=== PATIENT | female | born 1965 | race Caucasian/White ===

== ENCOUNTER 2021-05-08 14:28 | Outpatient (CLI) | payer MEDICAID, SELFPAY ==
--- NOTE | 2021-05-08 14:44 | XR_ITS ---
WS: [id number] Exam: XR KUB [id number] Date/Time of Exam: 05/08/2021 2:46 PM Reason For Exam: stomach pain No bowel obstruction or free air. No calcifications seen in the region of the kidneys. No sign of org an enlargement. Nonspecific pelvic calcifications noted bilaterally. Signs of prior cholecystectomy. Regional bony structures are intact. XR/XR KUB [id number] IMPRESSION: 1. No calcifications noted in the region of the kidneys. 2. No acute abdominal process.
== END 2021-05-08 14:29 | disposition home or self-care (01) ==
LOC: RAD 14:38
PROVIDERS: Visit Provider Nurse Practitioner
DX: R10.9 Unspecified abdominal pain (principal)
CPT/HCPCS: 74018; 81000

== ENCOUNTER → 2021-05-17 14:33 | Outpatient (BNVA) | payer MEDICAID, SELFPAY | PROVIDERS: Visit Provider Nurse Practitioner | DX: R19.7 Diarrhea, unspecified (principal) | CPT/HCPCS: 87177; 87209; 87493; 87506 ==

== ENCOUNTER 2021-06-04 16:34 | Emergency (ER) | payer MEDICAID, SELFPAY ==
--- NOTE | 2021-06-04 16:38 | XRR_ITS ---
PROCEDURE INFORMATION: Exam: XR Right Ribs with PA Chest Exam date and time: 06/04/2021 4:38 PM Age: 55 years old Clinical indication: Injury or trauma; Rib area; Blunt trauma (contusions or hematomas); Injury date: 06/04/21; Injury details: Fall, loc approx 1 hr; Patient HX: Right sided rib pain, sharp pain w/ breathing and coughing; Additional info: Fall with right rib pain TECHNIQUE: Imaging protocol: XR Right ribs with PA chest. Views: 3 views COMPARISON: CT cervical spin wo con* [id number] 06/04/2021 6:12 PM FINDINGS: Lungs: Unremarkable. No consolidation. Pleural spaces: Unremarkable. No pleural effusion. No pneumothorax. Heart/Mediastinum: Unremarkable. No cardiomegaly. Bones/joints: Unremarkable. XR/XR ribs RT mn 3V w CXR1V [id number] IMPRESSION: No acute findings. Radiation Dose CTDIVOL = (mGy): DLP = (mGy-cm)
[2021-06-04 17:00] VITALS: BP 126/76; PULSE 82; RESP 15; TEMP 37.2; O2SAT 99; BMI 21.7
--- NOTE | 2021-06-04 17:26 | XRR_ITS ---
PROCEDURE INFORMATION: Exam: XR Right Elbow Exam date and time: 06/04/2021 5:26 PM Age: 55 years old Clinical indication: Injury or trauma; Blunt trauma (contusions or hematomas); Injury date: 05/25/2021; Injury details: Fall, loc approx 1 hr; Prior surgery; Surgery type: Thyroid nodules; Patient HX: Right elbow pain; Additional info: Fall pain TECHNIQUE: Imaging protocol: XR Right elbow. Views: 3 or more views. COMPARISON: CR (CHEST, ) 06/04/2021 6:25 PM FINDINGS: Bones/joints: Intact. No evidence of fracture or dislocation. Soft tissues: Normal. XR/XR elbow RT min 3V* [id number] IMPRESSION: No acute findings. Radiation Dose CTDIVOL = (mGy): DLP = (mGy-cm)
--- NOTE | 2021-06-04 17:26 | XRR_ITS ---
PROCEDURE INFORMATION: Exam: XR Right Shoulder Exam date and time: 06/04/2021 5:26 PM Age: 55 years old Clinical indication: Injury or trauma; Blunt trauma (contusions or hematomas); Injury date: 06/04/21; Injury details: Fall, loc approx 1 hr; Patient HX: Right shoulder pain; Additional info: Fall pain TECHNIQUE: Imaging protocol: XR Right shoulder. Views: 2 or more views. COMPARISON: 1. CR XR ribs RT mn 3V w CXR1V [id number] 06/04/2021 6:22 PM 2. CR (CHEST, ) 06/04/2021 6:25:46 PM FINDINGS: Bones/joints: Intact. No fracture or dislocation. Soft tissues: Normal. XR/XR shoulder RT min 2V* [id number] IMPRESSION: No acute findings. Radiation Dose CTDIVOL = (mGy): DLP = (mGy-cm)
--- NOTE | 2021-06-04 17:28 | W.ED.FALL ---
Documented by User: Russ Cooper 06/08/21 09:54 HPI - Fall General: Chief Complaint: Fall Stated Complaint: Pain on Right side/Ribs from fall Time Seen by Provider: 06/04/21 17:20 History of Present Illness: HPI Narrative: 55-year-old female presents emergency room complaining of right shoulder and right rib pain. She got up this morning from bed doing to make coffee get dizzy and fell on the floor. She states she woke up an hour later she was not sure what happened. Stated her right ribs hurt she initially denied any loss conscious to me but when I read the nurses note she told him she been down for an hour and could not really account for it. She is not on any anticoagulants. She has had problems labyrinthitis in the past she is not having any dizziness or vertiginous symptoms now. MD complaint: fall Onset (ago): hour(s) Fall from: standing Fall witnessed: no Place fall occurred: home Loss of consciousness: Yes Prolonged down time: yes and hour(s) (1) Symptoms prior to fall: dizziness Associated symptoms-after fall: Denies abdominal pain or chest pain Review of Systems Const: Denies: fever(s), chills, body aches, change in appetite, fatigue or malaise ENMT: Denies: throat pain, ear or mastoid pain, nasal discharge or nasal congestion Card: Denies: chest pain, edema, dyspnea on exertion or orthopnea Resp: Denies: dyspnea, productive cough or non-productive cough GI: Denies: abdominal pain, nausea, vomiting, hematemesis, coffee ground emesis, diarrhea, constipation, bloating, hematochezia or melena : Denies: flank pain, difficulty voiding, dysuria, urinary frequency or urinary urgency Skin/Breast: Denies: rash or pruritus Physical Exam Const: COMMON NORMALS: no acute distress GENERAL APPEARANCE: cooperative and comfortable ORIENTATION/CONSCIOUSNESS: Yes awake, Yes oriented to person, Yes oriented to place and Yes oriented to time HENMT: COMMON NORMALS: normocephalic, atraumatic and hearing grossly normal bilaterally HEAD & SCALP: normocephalic and atraumatic Resp: COMMON NORMALS: normal respiratory effort, No retractions, No use of accessory muscles and clear to auscultation bilaterally AUSCULTATION: clear to auscultation bilaterally Cardio: COMMON NORMALS: regular rate, regular rhythm and No murmurs present (Cardio) RATE: regular rate RHYTHM: regular rhythm GI: COMMON NORMALS: Soft to palpation and No hepatosplenomegaly present AUSCULTATION: Yes normoactive bowel sounds PALPATION: Yes Soft to palpation, No Tenderness to palpation present (GI), No Guarding due to palpation present (GI) and Yes No hepatosplenomegaly present Extremity: COMMON NORMALS: normal to inspection, capillary refill normal, no clubbing, cyanosis or edema, no calf tenderness and no pedal edema NARRATIVE EXTREMITY EXAM: Pain clavicle and right shoulder Neuro: SENSORIUM/ORIENTATION: Yes oriented to person, Yes oriented to place and Yes oriented to time Skin: COMMON NORMALS: no rashes or lesions noted GENERAL SKIN EXAM: no rashes or lesions noted Course Vital Signs: Vital signs: Vital Signs Temperature 99.0 F 06/04/21 17:00 Pulse Rate 93 06/04/21 19:21 Respiratory Rate 18 06/04/21 19:21 Blood Pressure 119/74 06/04/21 19:21 Pulse Oximetry 90 06/04/21 19:21 MDM - Fall MDM Narrative: Medical decision making narrative: Care turned over to Dr. Dela Cruz at change of shift. See his notes for final diagnosis disposition Discharge Plan Discharge Patient Disposition: Home Clinical Impression: Contusion of right shoulder, Vertigo, Sinusitis Condition: Stable Prescriptions: New methocarbamol 750 mg tablet 750 mg PO Q6H PRN (Reason: spasms) Qty: 20 RF: 0 cephalexin 500 mg capsule 500 mg PO TID 7 Days Qty: 21 RF: 0 Naprosyn 500 mg tablet 500 mg PO BID PRN (Reason: pain) Qty: 20 RF: 0 No Action meloxicam [Mobic] 15 mg tablet 15 mg PO DAILY RF: 0 atorvastatin [Lipitor] 80 mg tablet 80 mg PO DAILY RF: 0 oxybutynin chloride 5 mg tablet 5 mg PO TID RF: 0 lisinopril 40 mg tablet 40 mg PO DAILY RF: 0 loperamide 2 mg capsule 2 mg PO QID PRN (Reason: loose stool) Qty: 20 RF: 0 Discharge Orders: Discharge ED (Routine); Ordered 06/04/21 Ordered By: Shane Dela Cruz Discharge Diet: Advance as tolerated Discharge Activity: Resume usual activity Patient Instructions: Sinusitis (ED), Vertigo (ED) Coding Level of Care Code ED Commercial Credit Portfolio Manager for Chg Fwd Exam Detailed Documented by User: Shane Dela Cruz MD 06/04/21 19:49 HPI - Fall General: Chief Complaint: Fall Stated Complaint: Pain on Right side/Ribs from fall Time Seen by Provider: 06/04/21 17:20 Course Vital Signs: Vital signs: Vital Signs Temperature 99.0 F 06/04/21 17:00 Pulse Rate 93 06/04/21 19:21 Respiratory Rate 18 06/04/21 19:21 Blood Pressure 119/74 06/04/21 19:21 Pulse Oximetry 90 06/04/21 19:21 MDM - Fall MDM Narrative: Medical decision making narrative: Patient presents with vertigo because of fall and has a shoulder contusion from her fall. She has no other signs of any other injuries. CT showed a chronic C7 finding with and examined her she has no acute pain to her neck with no signs of acute fracture. She does have sinus pain sinus congestion states she gets vertigo with sinusitis we'll treat with Keflex for sinusitis she has meclizine at home we'll place her on Naprosyn Robaxin and she is to ice her shoulder patient is able ambulate here she has no signs of stroke she is stable for discharge is to follow-up PCP and return if worsening. EKG Data^: EKG 1: Attestation: I personally reviewed and interpreted this EKG as follows: EKG interpretation date: 06/04/21 EKG interpretation time: 19:40 Interpretation: nsr hr 70 with no t or twave abnormalities qrs 84 qtc 400 Discharge Plan Discharge Patient Disposition: Home Clinical Impression: Contusion of right shoulder, Vertigo, Sinusitis Condition: Stable Prescriptions: New methocarbamol 750 mg tablet 750 mg PO Q6H PRN (Reason: spasms) Qty: 20 RF: 0 cephalexin 500 mg capsule 500 mg PO TID 7 Days Qty: 21 RF: 0 Naprosyn 500 mg tablet 500 mg PO BID PRN (Reason: pain) Qty: 20 RF: 0 No Action meloxicam [Mobic] 15 mg tablet 15 mg PO DAILY RF: 0 atorvastatin [Lipitor] 80 mg tablet 80 mg PO DAILY RF: 0 oxybutynin chloride 5 mg tablet 5 mg PO TID RF: 0 lisinopril 40 mg tablet 40 mg PO DAILY RF: 0 loperamide 2 mg capsule 2 mg PO QID PRN (Reason: loose stool) Qty: 20 RF: 0 Discharge Orders: Discharge ED (Routine); Ordered 06/04/21 Ordered By: Shane Dela Cruz Discharge Diet: Advance as tolerated Discharge Activity: Resume usual activity Patient Instructions: Sinusitis (ED), Vertigo (ED) Coding Level of Care Code ED Commercial Credit Portfolio Manager for [place] Fwd Exam Detailed
--- NOTE | 2021-06-04 17:29 | CTR_ITS ---
PROCEDURE INFORMATION: Exam: CT Head Without Contrast Exam date and time: 06/04/2021 5:29 PM Age: 55 years old Clinical indication: Injury or trauma; Fall; Blunt trauma (contusions or hematomas); With loss of consciousness; Additional info: Fall w loc TECHNIQUE: Imaging protocol: Computed tomography of the head without contrast. Radiation optimization: All CT scans at this facility use at least one of these dose optimization techniques: automated exposure control; mA and/or kV adjustment per patient size (includes targeted exams where dose is matched to clinical indication); or iterative reconstruction. COMPARISON: No relevant prior studies available. RADIATION DOSE METRICS: Total DLP (mGy-cm): 736.21 FINDINGS: Brain: There is chronic infarct in the medial aspect of the left cerebellar hemisphere. There is no intracranial mass, hemorrhage or edema. Cerebral ventricles: No ventriculomegaly. Paranasal sinuses: Visualized sinuses are unremarkable. No fluid levels. Mastoid air cells: Visualized mastoid air cells are well aerated. Bones/joints: Unremarkable. No acute fracture. Soft tissues: Unremarkable. CT/CT head wo con* [id number] IMPRESSION: 1. Old left cerebellar infarct. 2. No acute intracranial finding. Radiation Dose CTDIVOL = (mGy): DLP = 736.21 (mGy-cm)
--- NOTE | 2021-06-04 17:29 | CTR_ITS ---
PROCEDURE INFORMATION: Exam: CT Cervical Spine Without Contrast Exam date and time: 06/04/2021 5:29 PM Age: 55 years old Clinical indication: Injury or trauma; Fall; Blunt trauma; Additional info: Fall/trauma TECHNIQUE: Imaging protocol: Computed tomography images of the cervical spine without contrast. Radiation optimization: All CT scans at this facility use at least one of these dose optimization techniques: automated exposure control; mA and/or kV adjustment per patient size (includes targeted exams where dose is matched to clinical indication); or iterative reconstruction. COMPARISON: CT head wo con* [id number] 06/04/2021 6:10 PM RADIATION DOSE METRICS: Total DLP (mGy-cm): 498.28 FINDINGS: Bones/joints: There is mild anterior wedging of the superior endplate of C7 with sclerosis of the anterior aspect of the upper vertebral body and endplate. This appears to be chronic and could be related to remote injury. Correlation with the clinical findings is suggested. No acute appearing fracture is identified. Discs/Spinal canal/Neural foramina: No significant disc protrusion. No severe spinal canal stenosis. No significant neural foraminal narrowing. Thyroid: Thyroid is enlarged and appears to contain multiple slightly hypodense nodules. Further evaluation with non urgent thyroid ultrasound suggested if not already done. Lungs: Lung apices are normal. Soft tissues: Prevertebral soft tissues are unremarkable question of chronic injury involving the superior endplate of C7. CT/CT cervical spin wo con* [id number] IMPRESSION: 1. Chronic appearing deformity of the superior endplate of C7. Please correlate with clinical findings. 2. No definite acute fracture is identified. 3. Enlarged thyroid with nodules, further evaluation with ultrasound suggested. COMMENTS: Consistent with the [place] [employer]'s Incidental Findings Committee white paper (J Am Berta Radiol 2015): In patients aged 35 years and older with an incidental thyroid nodule equal to or greater than 1.[address], MRI or extrathyroidal US, further evaluation with dedicated thyroid US is recommended for patients with normal life expectancy and without comorbidities. For smaller nodules without suspicious features, no further evaluation or follow up is recommended. Radiation Dose CTDIVOL = (mGy): DLP = 498.28 (mGy-cm)
[2021-06-04] MEDS: HYDROcodone-acetaminophen 5-325 mg Tablet 1 TAB PO (17:50)
--- NOTE | 2021-06-04 18:00 | XRR_ITS ---
PROCEDURE INFORMATION: Exam: XR Right Clavicle, Complete Exam date and time: 06/04/2021 6:00 PM Age: 55 years old Clinical indication: Injury or trauma; Blunt trauma (contusions or hematomas); Injury date: 06/04/21; Injury details: Fall, loc approx 1 hr; Patient HX: Right clavicle/shoulder pain TECHNIQUE: Imaging protocol: XR Right clavicle complete. Views: Any number of views. COMPARISON: CR XR ribs RT mn 3V w CXR1V [id number] 06/04/2021 6:22 PM FINDINGS: Bones/joints: Intact. No fracture or dislocation. Soft tissues: Normal. XR/[place] [id number] IMPRESSION: No acute findings. Radiation Dose CTDIVOL = (mGy): DLP = (mGy-cm)
--- NOTE | 2021-06-04 18:00 | ECG_ITS ---
[facility] Test Date: 2021-06-04 Pat Name: Leatha Flores Department: Room: Gender: Female Director Call Center Sales: : 1965 Requested By: Russ Coburn Order Number: [id number] Vicki MD: Vikram Landis M.D. Measurements Intervals [place] Rate: 70 P: 72 DE: 181 QRS: 83 QRSD: 84 T: 79 QT: 379 QTc: 410 Interpretive Statements SINUS RHYTHM No previous ECG available for comparison Electronically Signed On 06-06-2021 17:42:05 GRAIN MIXER by Vikram Landis M.D. [email or web address]
[2021-06-04 19:21] VITALS: BP 119/74; PULSE 93; RESP 18; O2SAT 90
== END 2021-06-04 20:06 | disposition home or self-care (01) ==
PROVIDERS: Emergency Provider Emergency Medicine
DX: S40.011A Contusion of right shoulder, initial encounter (principal); R42 Dizziness and giddiness; J32.9 Chronic sinusitis, unspecified; W19.XXXA Unspecified fall, initial encounter
CPT/HCPCS: 70450; 71101; 72125; 73000; 73030; 73080; 93005; 99283

== ENCOUNTER → 2021-09-25 10:35 | Outpatient (BNVA) | payer MEDICAID, SELFPAY | PROVIDERS: Visit Provider Family Medicine | DX: Z76.89 Persons encountering health services in other specified circumstances (principal); E11.65 Type 2 diabetes mellitus with hyperglycemia; E05.00 Thyrotoxicosis with diffuse goiter without thyrotoxic crisis or storm; E11.42 Type 2 diabetes mellitus with diabetic polyneuropathy; I10 Essential (primary) hypertension; E78.01 Familial hypercholesterolemia | CPT/HCPCS: 80053; 80061; 82043; 83036; 83721; 84439; 84443; 84481; 85025; 86803; 87806 ==

== ENCOUNTER 2022-01-17 01:14 | Emergency (ER) | payer MEDICAID, SELFPAY ==
[2022-01-17 01:20] VITALS: BP 125/70; PULSE 75; RESP 14; O2SAT 100; BMI 25.0
--- NOTE | 2022-01-17 01:25 | W.ED.DIZZY ---
HPI - Dizziness General: Chief Complaint: Dizziness Stated Complaint: dizzy Time Seen by Provider: 01/17/22 01:25 History of Present Illness: HPI Narrative: 56-year-old female comes in tonight with complaints of dizziness. Patient reports that she started feeling dizzy about 2-1/2 hours prior to arrival to the ER. Patient also states that she has had previous episodes similar illness. Patient reports a frontal sinus headache, and some difficulty hearing out of the right ear. Patient appears nontoxic. Patient responds appropriate to questions. Daughter reports that she seemed either hard to hear or slightly confused. Patient has a history of diabetes, degenerative disc disease, and high cholesterol. Patient reports that she will take any medication for her diabetes at this time. Associated symptoms: Reports nausea and nasal congestion; Denies chest pain Review of Systems General: Reports: 10 or more systems reviewed and unremarkable except in HPI and below Const: Denies: fever(s) ENMT: Reports: nasal congestion Card: Denies: chest pain Resp: Denies: dyspnea GI: Reports: nausea : Denies: difficulty voiding Musc: Denies: neck pain or back pain Skin/Breast: Denies: rash Neuro: Reports: dizziness Endo: Denies: polyuria or polydipsia PFSH ED PFSH: Social History (Updated 10/23/21 @ 09:14 by Oswald Baldwin LPN) Smoking and tobacco status: never smoked Alcohol intake: never Physical Exam Const: COMMON NORMALS: alert HENMT: COMMON NORMALS: normocephalic and Normal external nose present HEAD & SCALP: normocephalic NOSE: Normal external nose present MOUTH: Normal oral and palatal mucosa present THROAT: posterior oropharynx normal Neck/C-Spine: COMMON NORMALS: full ROM and no meningeal signs Resp: COMMON NORMALS: normal respiratory effort and clear to auscultation bilaterally AUSCULTATION: clear to auscultation bilaterally Cardio: COMMON NORMALS: regular rate and regular rhythm RATE: regular rate RHYTHM: regular rhythm Extremity: COMMON NORMALS: normal to inspection and full ROM Neuro: TASHIA COMA SCALE: document GCS findings [place] coma scale eye opening: Spontaneous Tashia coma scale verbal response: Orientated [place] coma scale motor response: Obey commands Tashia coma scale total score: 15 SENSORIUM/ORIENTATION: Yes alert MENINGEAL SIGNS: Yes no meningeal signs SPEECH: speech normal GAIT: Yes Normal gait present PUPIL EXAM: Normal pupillary reactivity/response: bilateral Course Vital Signs: Vital signs: Vital Signs Temperature 98.2 F 01/17/22 01:26 Pulse Rate 72 01/17/22 01:50 Respiratory Rate 14 01/17/22 01:20 Blood Pressure 128/69 01/17/22 01:50 Pulse Oximetry 100 01/17/22 01:20 MDM - Dizziness Medical Decision Making 56-year-old female comes in today for complaints of dizziness. Daughter brought her in for concerns of some mild confusion. Patient states that she has episodes like this at least once a year where she will have significant dizzy spells with occasional nausea and vomiting. Last episode was about 1 year ago. On exam patient is alert and oriented to place. Patient moves all extremities well. No focal neurodeficits were noted. Abdomen was soft and nontender. Orthostatic blood pressures were normal. Differential diagnosis includes CVA, vestibular neuritis, M?ni?re's, sinusitis. Laboratory values were unremarkable except for some elevation of blood glucose at 235, and alk phos at 107. CT of the head did note an old area of infarct but no acute abnormalities. Patient was given a dose of Reglan which improved her nausea and dizziness symptoms. We will go ahead and treat patient for her sinus complaints with cephalexin 500 mg 3 times a day for 7 days. With the abnormality noted on the patient's brain CT and there is recurrent episodes of dizziness along with her episodes of confusion I feel the patient needs further evaluation with neurology outpatient. Patient was agreeable to this along with her daughter. Patient was able to ambulate without any difficulty in the emergency department and felt safe to go home. Lab Data : 01/17/22 01:30 01/17/22 01:[address] 01/17/22 01:55 IMPRESSION: No acute infarct or hemorrhage. ASSESSMENT: ASPECTS ([place] Stroke Program Early CT Score) is 10. Laboratory Results WBC 14.4 10^3/uL (4.0-10.0) H 01/17/22 01:30 RBC 4.17 10^6/uL (4.1-5.3) 01/17/22 01:30 Hgb 13.8 g/dL (11.5-15.3) 01/17/22 01:30 Hct 40.1 % (37.0-47.0) 01/17/22 01:30 MCV 96.2 fl (81-99) 01/17/22 01:30 MCH 33.1 pg (28.0-34.0) 01/17/22 01:30 MCHC 34.4 g/dL (30.0-36.0) 01/17/22 01:30 RDW 12.5 % (12.1-15.1) 01/17/22 01:30 Plt Count 161 10^3/cmm (130-400) 01/17/22 01:30 MPV 9.9 fL (7.4-10.4) 01/17/22 01:30 Neut % (Auto) 74.8 % 01/17/22 01:30 Lymph % (Auto) 18.9 % 01/17/22 01:30 [place] % (Auto) 4.4 % 01/17/22 01:30 Eos % (Auto) 0.9 % 01/17/22 01:30 Baso % (Auto) 0.6 % 01/17/22 01:30 Neut # (Auto) 10.79 10^3/uL (1.8-7.7) H 01/17/22 01:30 Lymph # (Auto) 2.7 10^3/uL (0.8-4.8) 01/17/22 01:30 [place] # (Auto) 0.6 10^3/uL (0.2-0.9) 01/17/22 01:30 Eos # (Auto) 0.1 10^3/uL (0.0-0.8) 01/17/22 01:30 Baso # (Auto) 0.1 10^3/uL (0.0-0.1) 01/17/22 01:30 Nucleated RBC % (auto) 0 % 01/17/22 01:30 Nucleated RBCs # 0.0 /100WBC 01/17/22 01:30 Sodium 137 mmol/L (136-145) 01/17/22 01:30 Potassium 4.2 mmol/L (3.5-5.1) 01/17/22 01:30 Chloride 102 mmol/L (98-107) 01/17/22 01:30 Carbon Dioxide 24 mmol/L (22-29) 01/17/22 01:30 Anion Gap 15.2 (5-19) 01/17/22 01:30 BUN 31 mg/dL (6-20) H 01/17/22 01:30 Creatinine 0.8 mg/dL (0.5-0.9) 01/17/22 01:30 GFR Calculation 74.5 mL/min (90-130) L 01/17/22 01:30 Glucose 235 mg/dL (65-115) H 01/17/22 01:30 POC Glucose 248 mg/dL (70-110) H 01/17/22 01:27 Calculated Osmolality 298 mOsm/kg (285-295) H 01/17/22 01:30 Calcium 9.1 mg/dL (8.5-10.5) 01/17/22 01:30 Total Bilirubin 0.3 mg/dL (0.15-1.2) 01/17/22 01:30 AST 11 U/L (0-32) 01/17/22 01:30 ALT 10 U/L (0-33) 01/17/22 01:30 Alkaline Phosphatase 107 IU/L (35-105) H 01/17/22 01:30 C-Reactive Protein < 3.0 mg/L (0.0-4.9) 01/17/22 01:30 Total Protein 7.0 g/dL (6.6-8.7) 01/17/22 01:30 Albumin 4.3 g/dL (3.5-5.2) 01/17/22 01:30 Globulin 2.7 g/dL (1.3-4.6) 01/17/22 01:30 TSH 0.06 uIU/mL (0.27-4.20) L 01/17/22 01:30 Urine Color Yellow (Yellow) 01/17/22 01:50 Urine Appearance Clear (CLEAR) 01/17/22 01:50 Urine pH 5 (5-7) 01/17/22 01:50 Ur Specific [place] 1.025 (1.005-1.030) 01/17/22 01:50 Urine Protein Neg (Negative) 01/17/22 01:50 Urine Glucose (UA) 4+ (Normal) H 01/17/22 01:50 Urine Ketones Negative (Negative) 01/17/22 01:50 Urine Blood Neg (Negative) 01/17/22 01:50 Urine Nitrate Negative (Negative) 01/17/22 01:50 Urine Bilirubin Neg (Negative) 01/17/22 01:50 Urine Urobilinogen Norm mg/dL (Negative) 01/17/22 01:50 Ur Leukocyte Esterase Negative (Negative) 01/17/22 01:50 Discharge Plan Discharge Patient Disposition: Home Clinical Impression: Recurrent vestibular neuritis, Hx of cerebral infarction, Frontal sinus pain Condition: Stable Prescriptions: Changed cephalexin 500 mg capsule 500 mg PO TID 7 Days Qty: 21 0RF No Action pregabalin 150 mg capsule 150 mg PO BID Qty: 60 2RF atorvastatin 80 mg tablet 80 mg PO DAILY Qty: 30 2RF famotidine 40 mg tablet 40 mg PO DAILY Qty: 90 1RF Novolin R Flexpen 100 unit/mL (3 mL) insulin pen 1 unit SUBCUT TID Qty: 15 2RF Rx Instructions: INJECT PER SLIDING SCALE, MAX 36 UNITS PER DAY meloxicam [Mobic] 15 mg tablet 15 mg PO DAILY Qty: 90 1RF methimazole 5 mg tablet 5 mg PO DAILY Qty: 90 1RF metoprolol tartrate 50 mg tablet 50 mg PO BID Qty: 180 1RF montelukast 10 mg tablet 10 mg PO DAILY Qty: 90 1RF omeprazole 40 mg capsule,delayed release(DR/EC) 40 mg PO DAILY Qty: 90 1RF oxybutynin chloride 5 mg tablet 5 mg PO TID 90 Days Qty: 270 1RF lisinopril 40 mg tablet 40 mg PO DAILY Qty: 90 1RF pregabalin 150 mg capsule 150 mg PO DAILY Qty: 30 2RF Trulicity 0.75 mg/0.5 mL pen injector 0.75 mg SUBCUT .ONCE WEEKLY Qty: 2 5RF methocarbamol 750 mg tablet 750 mg PO Q6H PRN (Reason: spasms) Qty: 20 0RF Discharge Orders: Discharge ED (Routine); Ordered 01/17/22 Ordered By: Nicolas Johnson Referrals: Von Wu DO [Primary Care Provider] - Discharge Diet: Usual diet Discharge Activity: Increase activity as tolerated Patient Instructions: Dizziness (ED) Activity Restrictions/Additional Instructions: Change positions slowly. Drink plenty of water with medications. Follow-up with primary care for further instructions. Take antibiotics as directed. Case management will contact you regarding follow-up appointment with neurologist. Return to ER for worsening symptoms or new concerns. Coding Level of Care Code ED [employer] Cut[employer] Block Repairer for Chg Fwd Exam Detailed
[2022-01-17 01:26] VITALS: TEMP 36.8
[2022-01-17 01:30] LABS: Glucose Point of Care 248 mg/dL (70-110)
[2022-01-17 01:39] LABS: Basophils # 0.1 10^3/uL (0.0-0.1); Basophils % 0.6 %; Eosinophils # 0.1 10^3/uL (0.0-0.8); Eosinophils % 0.9 %; Hematocrit 40.1 % (37.0-47.0); Hemoglobin 13.8 g/dL (11.5-15.3); Lymphocytes # 2.7 10^3/uL (0.8-4.8); Lymphocytes % 18.9 %; Mean Corpuscular HGB Conc 34.4 g/dL (30.0-36.0); Mean Corpuscular Hemoglobin 33.1 pg (28.0-34.0); Mean Corpuscular Volume 96.2 fl (81-99); Mean Platelet Volume 9.9 fL (7.4-10.4); Monocytes # 0.6 10^3/uL (0.2-0.9); Monocytes % 4.4 %; Neutrophils # 10.79 10^3/uL (1.8-7.7); Neutrophils % 74.8 %; Nucleated Red Blood Cells % 0 %; Platelet Count 161 10^3/cmm (130-400); Red Blood Count 4.17 10^6/uL (4.1-5.3); Red Cell Distribution Width 12.5 % (12.1-15.1); White Blood Count 14.4 10^3/uL (4.0-10.0)
[2022-01-17] MEDS: sodium chloride 0.9% 500 ML 999 ML IV (01:46)
[2022-01-17 01:50] VITALS: BP 120/66; BP 128/69; BP 128/72; PULSE 72; PULSE 77; PULSE 80
[2022-01-17 01:54] LABS: Alanine Aminotransferase 10 U/L (0-33); Albumin Level 4.3 g/dL (3.5-5.2); Alkaline Phosphatase 107 IU/L (35-105); Anion Gap 15.2 (5-19); Aspartate Amino Transferase 11 U/L (0-32); Blood Urea Nitrogen 31 mg/dL (6-20); Calcium 9.1 mg/dL (8.5-10.5); Carbon Dioxide 24 mmol/L (22-29); Chloride 102 mmol/L (98-107); Creatinine Clr Calc Pharmacy 82.7739; Globulin 2.7 g/dL (1.3-4.6); Glomerular Filtration Rate 74.5 mL/min (90-130); Glucose 235 mg/dL (65-115); Osmolality Calculated 298 mOsm/kg (285-295); Potassium 4.2 mmol/L (3.5-5.1); Sodium 137 mmol/L (136-145); Total Bilirubin 0.3 mg/dL (0.15-1.2)
[2022-01-17 01:54] LABS: Add Urine Microscopic? NO; Charge for UA Resulting for Rev
[2022-01-17] MEDS: metoclopramide 5 mg/mL SDV 2 mL 10 MG IVP (01:55)
--- NOTE | 2022-01-17 01:55 | CTR_ITS ---
PROCEDURE INFORMATION: Exam: CT Head Without Contrast Exam date and time: 01/17/2022 2:06 AM Age: 56 years old Clinical indication: Pain; Patient HX: C/O frontal headache with dizziness. ; Additional info: Dizzyness headache TECHNIQUE: Imaging protocol: Computed tomography of the head without contrast. Radiation optimization: All CT scans at this facility use at least one of these dose optimization techniques: automated exposure control; mA and/or kV adjustment per patient size (includes targeted exams where dose is matched to clinical indication); or iterative reconstruction. Other technique: STROKE PROTOCOL was implemented. COMPARISON: CT head wo con* [id number] 06/04/2021 6:10 PM RADIATION DOSE METRICS: Total DLP (mGy-cm): 944.98 FINDINGS: Brain: Stable left cerebellar encephalomalacia. Cerebral ventricles: No ventriculomegaly. Paranasal sinuses: Paranasal sinuses are clear. No air-fluid level. Mastoid air cells: Visualized mastoid air cells are clear. Bones/joints: Unremarkable. No acute fracture. Soft tissues: Unremarkable. Other findings: No acute infarct or hemorrhage. CT/CT head wo con* [id number] IMPRESSION: No acute infarct or hemorrhage. ASSESSMENT: ASPECTS ([facility] Stroke Program Early CT Score) is 10.
[2022-01-17 01:59] LABS: Bilirubin Urine Neg (Negative); Blood Urine Neg (Negative); Glucose Urine UA 4+ (Normal); Ketones Urine Negative (Negative); Leukocyte Esterase Urine Negative (Negative); Nitrate Urine Negative (Negative); Protein Urine Neg (Negative); Specific Gravity, Urine 1.025 (1.005-1.030); Urine Appearance Clear (CLEAR); Urine Color Yellow (Yellow); Urobilinogen Urine Norm (Negative); pH Urine 5 (5-7)
[2022-01-17 02:08] LABS: C Reactive Protein < 3.0 mg/L (0.0-4.9)
[2022-01-17 02:29] LABS: Thyroid Stimulating Hormone 0.06 uIU/mL (0.27-4.20)
[2022-01-17] MEDS: cephALEXin 500 mg Capsule PO (02:55)
[2022-01-17 03:01] VITALS: PULSE 76; RESP 16; O2SAT 98
--- NOTE | 2022-01-18 06:40 | DCPLANNER ---
Addendum entered by Deidre Fishman 03/05/22 13:09: patients appointment was rescheduled Addendum entered by Deidre Fishman 02/05/22 11:47: Patient has a follow up appointment scheduled for Friday, February 18, 2022 at 1:30 with Brian at neurology. Clinic will call patient with appointment information. Original Note: client solutions manager had message to schedule a follow up appointment for patient with neurology. client solutions manager sent patients information to the front office staff at neurology. Patients information will be printed and reviewed. Clinic will call patient with appointment information.
== END 2022-01-17 03:00 | disposition home or self-care (01) ==
PROVIDERS: Emergency Provider Nurse Practitioner Family; PCP Family Medicine
DX: H81.20 Vestibular neuronitis, unspecified ear (principal); R51.9 Headache, unspecified; Z86.73 Personal history of transient ischemic attack (TIA), and cerebral infarction without residual deficits
CPT/HCPCS: 36416; 70450; 80053; 81003; 82962; 84443; 85025; 86140; 96361; 96374; 99285; J2765; J7040

== ENCOUNTER → 2022-02-28 13:00 | Outpatient (BNVA) | payer MEDICAID, SELFPAY | PROVIDERS: PCP Family Medicine; Visit Provider Family Medicine | DX: E05.00 Thyrotoxicosis with diffuse goiter without thyrotoxic crisis or storm (principal) | CPT/HCPCS: 80048; 84439; 84443; 84481 ==

== ENCOUNTER 2022-03-08 06:00 | Outpatient (CLI) | payer MEDICAID, SELFPAY | END 2022-03-08 06:01 | disposition home or self-care (01) | LOC: RAD 06-08 10:27 | PROVIDERS: PCP Family Medicine; Visit Provider Nurse Practitioner | DX: I63.9 Cerebral infarction, unspecified (principal) | CPT/HCPCS: 99204 ==

== ENCOUNTER → 2022-03-08 10:45 | Outpatient (BNVA) | payer MEDICAID, SELFPAY | PROVIDERS: PCP Family Medicine; Referring Provider Family Medicine; Visit Provider Nurse Practitioner | DX: R56.9 Unspecified convulsions (principal); R51.9 Headache, unspecified; I95.9 Hypotension, unspecified; R42 Dizziness and giddiness | CPT/HCPCS: 99204 ==

== ENCOUNTER → 2022-03-11 12:43 | Outpatient (BNVA) | payer MEDICAID, SELFPAY | PROVIDERS: PCP Family Medicine; Referring Provider Nurse Practitioner; Visit Provider Specialist | DX: R56.9 Unspecified convulsions (principal) | CPT/HCPCS: 95816 ==

== ENCOUNTER → 2022-04-08 14:16 | Outpatient (BNVA) | payer MEDICAID, SELFPAY | PROVIDERS: PCP Family Medicine; Referring Provider Family Medicine; Visit Provider Internal Medicine | DX: F17.200 Nicotine dependence, unspecified, uncomplicated (principal); E05.00 Thyrotoxicosis with diffuse goiter without thyrotoxic crisis or storm; E06.3 Autoimmune thyroiditis; E07.9 Disorder of thyroid, unspecified; E04.9 Nontoxic goiter, unspecified | CPT/HCPCS: 99204 ==

== ENCOUNTER 2022-04-09 08:50 | Outpatient (CLI) | payer MEDICAID, SELFPAY ==
[2022-04-09 09:46] LABS: Free T4 Free Thyroxine 0.64 ng/dL (0.82-1.77); Thyroid Stimulating Hormone 0.44 uIU/mL (0.27-4.20)
[2022-04-10 15:48] LABS: T3 Total 115 ng/dL (76-181)
== END 2022-04-09 08:51 | disposition home or self-care (01) ==
LOC: LAB 08:51
PROVIDERS: PCP Family Medicine; Visit Provider Internal Medicine
DX: E05.00 Thyrotoxicosis with diffuse goiter without thyrotoxic crisis or storm (principal); E06.3 Autoimmune thyroiditis
CPT/HCPCS: 36415; 84439; 84443; 84480

== ENCOUNTER 2022-05-01 08:23 | Outpatient (CLI) | payer MEDICAID, SELFPAY ==
--- NOTE | 2022-05-01 08:31 | US_ITS ---
WS: [id number] THYROID ULTRASOUND HISTORY: Graves Disease COMPARISON: None available. Right lobe: 3.8 cm x 2.9 cm x 6.3 cm (w x ap x l). Volume: 36.2 cm3. Mildly enlarged heterogeneous thyroid. Multiple small nodules throughout the gland. Largest nodule is a cyst with fluid layer which may be hemorrhagic cyst or colloid cyst. Smaller hypoechoic nodule in the inferior pole measures 1.3 x 1.0 x 1.2 cm. Majority of these nodules are less than a centimeter a nd appear to be colloid cysts. Vascularity is only minimally increased. Left lobe: 3.2 cm x 2.4 cm x 6.9 cm (w x ap x l). Volume: 27.7 cm3. Minimally enlarged gland. There are a few small cystic nodules. There is a solid nodule in the inferi or pole measuring 2.0 x 1.3 x 1.6 cm. This is an ovoid nodule with no calcification or echogenic foci . Only mild increased echogenicity within the gland. Isthmus: 0.5 cm. US/US thyroid [id number] IMPRESSION: 1. There is symmetric enlargement of the thyroid gland with multiple nodules. Nodules are predominantly benign in appearance with cystic and colloid cyst com ponents. 2. Small solid nodules in the inferior poles of each gland. By history these n odules may have undergone prior biopsy. There are no prior studies for comparis on to evaluate for stability or prior biopsy. 3. Findings are consistent with Graves' disease.
== END 2022-05-01 08:24 | disposition home or self-care (01) ==
LOC: RAD 08:24
PROVIDERS: PCP Family Medicine; Visit Provider Family Medicine
DX: E05.00 Thyrotoxicosis with diffuse goiter without thyrotoxic crisis or storm (principal)
CPT/HCPCS: 76536

== ENCOUNTER → 2022-07-31 10:49 | Outpatient (BNVA) | payer MEDICAID, SELFPAY | PROVIDERS: PCP Family Medicine; Visit Provider Family Medicine | DX: R30.0 Dysuria (principal); R31.9 Hematuria, unspecified; E11.65 Type 2 diabetes mellitus with hyperglycemia; E11.42 Type 2 diabetes mellitus with diabetic polyneuropathy; E06.3 Autoimmune thyroiditis | CPT/HCPCS: 80053; 81003; 83036; 84439; 84443 ==

== ENCOUNTER 2022-09-03 13:57 | Outpatient (CLI) | payer MEDICAID, SELFPAY ==
--- NOTE | 2022-09-03 14:30 | MR_ITS ---
WS: [id number] MRA ANGIOGRAPHY [place] OF [place]INK HISTORY: I63.9 - Cerebral infarction, unspecified COMPARISON: CT 01/17/2022 TECHNIQUE: 3-D MR angiography is performed of the [place] of [place]. All images are reviewed including source images. Distal vertebral and basilar arteries are intact with no significant stenosis or plaque. Posterior ce rebral arteries are normal course and caliber. Posterior communicating arteries are both patent. Intracranial portion of the internal carotid arteries are normal course and caliber. No significant a therosclerosis, stenosis or aneurysm identified. Middle and anterior cerebral arteries are both paten t with no significant disease. Anterior communicating artery is also normal. Chronic infarct LEFT cerebellum. MR/MR angio head wo con [id number] IMPRESSION: Normal MRA [place] of [place]. No aneurysm or occlusion.
[2022-09-03] MEDS: gadobenate dimeglumine 20 mL vial IV (15:03)
--- NOTE | 2022-09-03 15:15 | MR_ITS ---
WS: [id number] MRI BRAIN WITH AND WITHOUT CONTRAST HISTORY: I63.9 - Cerebral infarction, unspecified COMPARISON: CT head 01/17/2022 TECHNIQUE: Multiplanar imaging performed through the brain with MultiHance 16 ml's IV. Abnormal diffusion-weighted imaging. Remote infarct in the LEFT cerebellum with volume loss and encep halomalacia. No hemorrhage. Additional scattered T2 and FLAIR signal hyperintensities throughout the brain. Only mild small vesse l ischemic type changes are noted bilaterally. Small vessel ischemic disease in the mary. Ventricles and extra-axial spaces are normal. Clivus and pituitary gland are normal. Visualized posterior fossa and brainstem are also normal. Postcontrast images are negative for masses or vascular malformations. Dural venous sinuses are normal. Paranasal sinuses: Well aerated with no significant disease. Mastoid air cells: Normal. Calvarium and scalp: Normal. MR/MR head wo/w con [id number] IMPRESSION: 1. No acute infarct. 2. Remote LEFT cerebellar infarct with encephalomalacia. 3. Mild small vessel ischemic disease in the supratentorial white matter and a lso within the mary.
== END 2022-09-03 13:58 | disposition home or self-care (01) ==
PROVIDERS: PCP Family Medicine; Visit Provider Nurse Practitioner
DX: I63.9 Cerebral infarction, unspecified (principal)
CPT/HCPCS: 70544; 70553; A9577

== ENCOUNTER → 2022-10-16 11:17 | Outpatient (BNVA) | payer MEDICAID, SELFPAY | PROVIDERS: PCP Family Medicine; Visit Provider Family Medicine | DX: E11.65 Type 2 diabetes mellitus with hyperglycemia (principal); I10 Essential (primary) hypertension; Z13.29 Encounter for screening for other suspected endocrine disorder; E06.3 Autoimmune thyroiditis; E78.01 Familial hypercholesterolemia | CPT/HCPCS: 80053; 83036; 84439; 84443; 85025; 99214 ==

== ENCOUNTER 2022-10-21 09:30 | Outpatient (CLI) | payer MEDICAID, SELFPAY ==
[2022-10-21 11:03] LABS: Chol HDL Ratio 5.79 mg/dL (0.0-4.40); Cholesterol 197 mg/dL (0-200); HDL Cholesterol 34 mg/dL (60-100); Homocysteine 8.86; LDL Cholesterol Calculated 85 mg/dL (50-129); Triglycerides 392 mg/dL (0-150)
[2022-10-24 01:25] LABS: CARDIOLIPIN AB (IGA) <2.0 APL-U/mL; CARDIOLIPIN AB (IGG) <2.0 GPL-U/mL; CARDIOLIPIN AB (IGM) <2.0 MPL-U/mL
[2022-10-24 23:09] LABS: PROTEIN S, ACTIVITY 80 % normal (60-140)
[2022-10-25 03:53] LABS: Antithrombin III Activity 128 % normal (80-135)
[2022-10-25 19:39] LABS: PROTHROMBIN (FACTOR II) 20210G NEGATIVE
[2022-10-25 23:14] LABS: Factor 5 Leiden Mutation NEGATIVE
[2022-10-26 05:14] LABS: PROTEIN C, ACTIVITY 160 % normal (70-180)
== END 2022-10-21 09:31 | disposition home or self-care (01) ==
LOC: LAB 09:35
PROVIDERS: PCP Family Medicine; Visit Provider Nurse Practitioner
DX: I63.9 Cerebral infarction, unspecified (principal)
CPT/HCPCS: 36415; 80061; 81241; 83090; 85210; 85300; 85303; 85306; 86147

== ENCOUNTER 2022-11-01 13:53 | Outpatient (CLI) | payer MEDICAID, SELFPAY ==
--- NOTE | 2022-11-01 14:00 | CT_ITS ---
WS: [id number] CT ANGIOGRAM CEREBRAL AND CAROTID ARTERIES HISTORY: I63.9 - Cerebral infarction, unspecified TECHNIQUE: CT angiogram is performed of the carotid and cerebral arteries. During arterial injection imaging is obtained from the skull vertex to the aortic arch in 1.25 mm imaging. Coronal and sagittal reformats are submitted. Additional multi planar reformats of the carotid and cerebral arteries are submitted, MIP imaging also reviewed. NASCET criteria utilized. [facility] least one of these dose optimization techniques: automated exposure control; mA and/or kV adjust ment per patient size (includes targeted exams where dose is matched to clinical indication); or iter ative reconstruction. CONTRAST: Omnipaque 350; 100 mL IV. DLP: 1142.14 mGy.cm COMPARISON: 01/17/[address] CT head: No acute intracranial hemorrhage. Remote LEFT cerebellar infarct with encephalom alacia is reidentified. Carotid Angiogram: Right carotid: Common carotid artery: Arises normally from the innominate artery. No significant plaque or stenosis. Internal carotid artery: Small amount of plaque at the bifurcation. Stenosis less than 50%. External carotid artery: Patent. Left carotid: Common carotid artery: Arises normally from the aorta. No significant plaque or stenosis. Internal carotid artery: Small amount of calcified plaque and intimal thickening. High-grade stenosis distal to the bifurcation. External carotid artery: Patent. Right vertebral artery: Dominant. No stenosis. Left vertebral artery: Unremarkable. Arises normally from the subclavian artery. Subclavian arteries: No stenosis or significant abnormality. Upper thorax: Normal. Thyroid gland: Bilateral thyroid enlargement and nodularity. Prior ultrasound 05/01/2022 described si milar findings. Osseous structures: Unremarkable. CEREBRAL ANGIOGRAM: Intracranial vertebral arteries: Normal with no significant atherosclerosis. Basilar artery: No significant stenosis or occlusion. No aneurysm. Intracranial Internal carotid arteries: Moderate amount of plaque in the cavernous carotid arteries. Greater amount of plaque on the RIGHT. Stenosis near 50%. Middle cerebral arteries: Normal. Anterior cerebral arteries and ACOM: Normal. Posterior cerebral arteries and PCOM's: Normal. Dural venous sinuses are normally enhancing. Mastoid air cells: Normal. Paranasal sinuses: Normal. Calvarium: Normal. CT/CT angio headneck* [id number] IMPRESSION: 1. LEFT cervical ICA stenosis 50%. Calcified and noncalcified plaque extending over length of approximately 2 cm involving the proximal ICA. 2. Less than 50% stenosis cervical RIGHT ICA. 3. Bilateral 50% stenosis cavernous carotid arteries.
== END 2022-11-01 13:54 | disposition home or self-care (01) ==
LOC: RAD 13:54
PROVIDERS: PCP Family Medicine; Visit Provider Nurse Practitioner
DX: I63.9 Cerebral infarction, unspecified (principal); I65.23 Occlusion and stenosis of bilateral carotid arteries
CPT/HCPCS: 70496; 70498; Q9967

== ENCOUNTER 2022-11-14 12:14 | Outpatient (CLI) | payer MEDICAID, SELFPAY ==
--- NOTE | 2022-11-14 12:15 | USCV_ITS ---
Leatha Flores Age: 57 Gender: F : 1965 Exam Date: 11/14/2022 12:44 Ordering Phys: Brian SolimanP MSN AGACNP-BC Technologist: VIET Exam Location: [facility] [place] Indication: CVA BP: 110 / 70 HR: 81 Rhythm: Sinus Technical Quality: Adequate MEASUREMENTS (Male / Female) Normal Values 2D ECHO LVOT Diameter 2.0 cm LV Ejection Fraction MOD 2C 65.7 % LV Ejection Fraction 2C AL 67.3 % LA Diameter 2.6 cm LA Width 2.9 cm LA Height 4.2 cm RA Width 2.5 cm RA Height 3.7 cm Aorta at Sinotubular Diameter 2.2 cm IVC Diameter 1.3 cm M-MODE Aortic Annulus Diameter 3.1 cm LA Ao Ratio MM 0.9 MV E Point Septal Separation 0.6 cm DOPPLER AV Peak Velocity 121.0 cm/s LVOT Peak Velocity 82.0 cm/s AV Area Cont Eq vti 2.3 cm squared AV Area Cont Eq pk 2.1 cm squared MV Peak Velocity 90.0 cm/s MV Area PHT 5.0 cm squared Mitral E to A Ratio 0.9 MV E' Velocity 34.5 cm/s Mitral E to MV E' Ratio 6.6 Mitral E to LV E' Lateral Ratio 6.5 Mitral E to LV E' Septal Ratio 6.7 TR Peak Velocity 207.5 cm/s TR Peak Gradient 17.2 mmHg TR Mean Velocity 173.7 cm/s TR Mean Gradient 12.6 mmHg TR Velocity Time Integral 66.6 cm TV Peak E Velocity 44.0 cm/s Right Atrial Pressure 3.0 mmHg Pulmonary Artery Systolic Pressu 20.2 mmHg PV Peak Velocity 85.0 cm/s RV Acceleration Time 0.1 s RV Ejection Time 0.3 s RV AcT/ET 0.4 FINDINGS Left Ventricle Left ventricle is normal in size. LV systolic function is normal with EF of 55 to 60%. No regional wall motion abnormalities are seen. Grade 1 diastolic dysfunction Right Ventricle Normal in size and function Right Atrium Normal in size. Bubble study not showing intracardiac shunting. Left Atrium Normal in size Mitral Valve Structurally normal mitral valve. Trace mitral regurgitation. Aortic Valve Structurally normal aortic valve. No significant stenosis or regurgitation Tricuspid Valve Mild tricuspid regurgitation. Pulmonary artery systolic pressure is normal. Pulmonic Valve Not well visualized Pericardium Normal Aorta Normal IVC Appears to be normal CONCLUSIONS LV systolic function is normal with EF of 55 to 60%. Grade 1 diastolic dysfunction Bubble study not showing intracardiac shunting Trace mitral regurgitation. Mild tricuspid regurgitation No comparison studies are available. Vikram Landis MD (Electronically Signed) Final Date: 30 Nov 2022 10:25 S
== END 2022-11-14 12:15 | disposition home or self-care (01) ==
LOC: RAD 12:15
PROVIDERS: PCP Family Medicine; Visit Provider Nurse Practitioner
DX: I63.9 Cerebral infarction, unspecified (principal)
CPT/HCPCS: 80053; 83036; 84439; 84443; 85025; 99214; C8929

== ENCOUNTER → 2023-01-27 11:56 | Outpatient (BNVA) | payer MEDICAID, SELFPAY | PROVIDERS: PCP Family Medicine; Visit Provider Family Medicine | DX: E11.9 Type 2 diabetes mellitus without complications (principal); Z79.4 Long term (current) use of insulin; I10 Essential (primary) hypertension; E05.00 Thyrotoxicosis with diffuse goiter without thyrotoxic crisis or storm | CPT/HCPCS: 80048; 83036; 84439; 84443 ==

== ENCOUNTER → 2023-02-13 11:37 | Outpatient (BNVA) | payer MEDICAID, SELFPAY | PROVIDERS: PCP Family Medicine; Visit Provider Psychiatry & Neurology Neurology | DX: M54.81 Occipital neuralgia; Z71.89 Other specified counseling; G44.309 Post-traumatic headache, unspecified, not intractable; Z91.414 Personal history of adult intimate partner abuse; Z87.828 Personal history of other (healed) physical injury and trauma; E03.9 Hypothyroidism, unspecified; E11.42 Type 2 diabetes mellitus with diabetic polyneuropathy; Z79.4 Long term (current) use of insulin; M79.7 Fibromyalgia | CPT/HCPCS: 99203 ==

== ENCOUNTER → 2023-04-16 11:26 | Outpatient (BNVA) | payer MEDICAID, SELFPAY | PROVIDERS: PCP Family Medicine; Visit Provider Family Medicine | DX: N39.0 Urinary tract infection, site not specified (principal) | CPT/HCPCS: 81000 ==

== ENCOUNTER → 2023-06-09 13:43 | Outpatient (BNVA) | payer MEDICAID, SELFPAY | PROVIDERS: PCP Family Medicine; Visit Provider Psychiatry & Neurology Neurology | DX: M54.81 Occipital neuralgia (principal); G44.309 Post-traumatic headache, unspecified, not intractable | CPT/HCPCS: 99212 ==

== ENCOUNTER → 2023-09-08 12:08 | Outpatient (BNVA) | payer MEDICAID, SELFPAY | PROVIDERS: PCP Family Medicine; Visit Provider Family Medicine | DX: I10 Essential (primary) hypertension (principal); E11.65 Type 2 diabetes mellitus with hyperglycemia; E05.00 Thyrotoxicosis with diffuse goiter without thyrotoxic crisis or storm | CPT/HCPCS: 80053; 84439; 84443; 85025 ==

== ENCOUNTER → 2024-01-14 11:54 | Outpatient (BNVA) | payer MEDICAID, SELFPAY | PROVIDERS: PCP Family Medicine; Visit Provider Family Medicine | DX: E11.65 Type 2 diabetes mellitus with hyperglycemia (principal); I95.9 Hypotension, unspecified; E05.00 Thyrotoxicosis with diffuse goiter without thyrotoxic crisis or storm; E78.01 Familial hypercholesterolemia; E55.9 Vitamin D deficiency, unspecified; R79.89 Other specified abnormal findings of blood chemistry; E83.42 Hypomagnesemia; K21.9 Gastro-esophageal reflux disease without esophagitis | CPT/HCPCS: 80053; 80061; 82306; 82533; 82607; 83036; 83721; 83735; 84439; 84443; 85025; 85651; 86140 ==

== ENCOUNTER 2024-02-16 13:50 | Emergency (ER) | payer MEDICAID, SELFPAY ==
[2024-02-16] VITALS (7 sets, daily range): BP systolic 121–136; BP diastolic 62–88; PULSE 82–103; RESP 13–22; TEMP 37.7; O2SAT 92–100
--- NOTE | 2024-02-16 13:51 | ECG_ITS ---
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 Measurements Intervals Rodney Rate: 90 P: 65 VT: 160 QRS: 83 QRSD: 78 T: 60 QT: 328 QTc: 402 Interpretive Statements SINUS RHYTHM LOW QRS VOLTAGE IN PRECORDIAL LEADS [QRS DEFLECTION < 1.0 mV IN CHEST LEADS] No previous ECG available for comparison Electronically Signed On 02-16-2024 14:17:31 CDT by Reyes Ruiz M.D. [email or web address]
--- NOTE | 2024-02-16 13:53 | XRR_ITS ---
PROCEDURE INFORMATION: Exam: XR Chest Exam date and time: 02/16/2024 2:00 PM Age: 58 years old Clinical indication: Pain; Angina pectoris; Patient HX: SOB cp dizzy TECHNIQUE: Imaging protocol: Radiologic exam of the chest. Views: 1 view. COMPARISON: CR XR ribs RT mn 3V w CXR1V [id number] 06/04/2021 6:22 PM FINDINGS: Lungs: Unremarkable. No consolidation. Pleural spaces: Unremarkable. No pleural effusion. No pneumothorax. Heart/Mediastinum: Unremarkable. No cardiomegaly. Bones/joints: Unremarkable. XR/XR chest 1V portable [id number] IMPRESSION: No acute findings.
--- NOTE | 2024-02-16 14:11 | ED_ITS ---
HPI - Chest Pain 2 General: Chief Complaint: Chest Pain Stated Complaint: Chest pains, sob, dizzy Time Seen by Provider: 02/16/24 14:07 Source: patient Mode of arrival: ambulatory Limitations: no limitations History of Present Illness: Patient is a nice 58-year-old female presents to ED today along with her daughter for evaluation of chest pain. Patient states approximately 2 hours ago she was standing in her kitchen when she began developing pain to the substernal and left side of her chest. She feels like pain radiates into her left scapula. She was also noted to have some right sided jaw pain as well. Patient states pain has been constant since onset. She arrives in no acute distress but is currently rating her pain an 8/10. She reports some very mild shortness of breath/difficulty breathing. She has not had any recent URI-like symptoms. Denies any risk factors for pulmonary emboli. She has not noticed any leg pain or swelling. Of note she does report bilateral calf muscle cramps yesterday evening. PMH significant for HLD, smoking, diabetes, CVA. MD complaint: chest pain Onset (ago): hour(s) Timing of current episode: constant Prior episodes: No Onset: during rest Pain location: substernal and left chest Pain radiation: neck and left scapula Severity: severe Pain scale (0-10): 8 Relieving factors: nothing Exacerbating factors: nothing Associated symptoms: Deny abdominal pain, dyspnea, fever(s), nausea, palpitations, syncope or vomiting Treatment prior to arrival: none Risk Factors: Coronary artery disease risk factors: smoking history and hyperlipidemia Thoracic aortic dissection risk factors: none Related Data: On Oral Contraceptives: No Review of Systems 2 Const: Denies: fever(s), chills, body aches, fatigue or malaise Eyes: Denies: change in vision or blurry vision Card: Reports: chest pain; Denies: palpitations, irregular heart rhythm, edema, swelling of feet/ankles, lightheadedness, syncope, pre-syncope, dyspnea on exertion, orthopnea, leg pain with exertion or acrocyanosis Resp: Denies: dyspnea, productive cough, non-productive cough, wheezing, pain on inspiration, hemoptysis or chest congestion GI: Denies: abdominal pain, nausea, vomiting, heartburn or diarrhea : Denies: flank pain, difficulty voiding, dysuria, urinary frequency, urinary urgency or urinary hesitancy Musc: Reports: muscle cramps (last night had bilateral calf muscle cramps); Denies: neck pain, back pain, extremity pain, extremity swelling or joint pain Skin/Breast: Denies: rash Neuro: Denies: headache(s), numbness in extremities, weakness in extremities, sensory changes or dizziness PFSH ED 2 PFSH: Medical History CVA (cerebral vascular accident) Seizure-like activity Social History Smoking and tobacco/nicotine status: current every day tobacco/nicotine user cigarettes Packs smoked per day: 1 Years cigarettes smoked: 40 Alcohol intake: never Substance/Drug Use: never Female Reproductive History: Spontaneous abortions: No Physical Exam 2 Const: COMMON NORMALS: no acute distress, average body habitus, patient oriented x3, no limitations, healthy appearing, alert and well nourished G ENERAL APPEARANCE: cooperative ORIENTATION/CONSCIOUSNESS: Yes awake, Yes oriented to person, Yes oriented to place and Yes oriented to time HENMT: COMMON NORMALS: normocephalic and atraumatic HEAD & SCALP: normal to inspection, normocephalic and atraumatic FACE & SINUS: normal facial exam Neck/C-Spine: COMMON NORMALS: full ROM, no lymphadenopathy, supple, no meningeal signs and no JVD Chest: COMMONS NORMALS: normal inspection of the chest and normal palpation of entire chest wall Resp: COMMON NORMALS: normal respiratory effort and clear to auscultation bilaterally AUSCULTATION: clear to auscultation bilaterally Cardio: COMMON NORMALS: no JVD, regular rate and regular rhythm RATE: r egular rate RHYTHM: regular rhythm GI: COMMON NORMALS: Normal to inspection, nondistended, normoactive bowel sounds present, Soft to palpation, non-tender, No hepatosplenomegaly present and no masses PALPATION: Yes Soft to palpation and Yes No hepatosplenomegaly present : COMMON NORMALS: Yes no CVA tenderness BLADDER/KIDNEY EXAM: Yes no CVA tenderness Back/Pelvis: COMMON NORMALS: no CVA tenderness and thoracic and lumbar spine normal to inspection Extremity: COMMON NORMALS: normal to inspection, capillary refill normal, no clubbing, cyanosis or edema, no calf tenderness and no pedal edema GENERAL: Y es normal exam except as noted Neuro: TASHIA COMA SCALE: document GCS findings [place] coma scale eye opening: Spontaneous Tashia coma scale verbal response: Orientated [place] coma scale motor response: Obey commands [place] coma scale total score: 15 COMMON NORMALS: patient oriented x3, moves all extremities, no focal motor deficits, no sensory deficits noted and gait normal SENSORIUM/ORIENTATION: Yes alert, Yes oriented to person, Yes oriented to place and Yes oriented to time MENINGEAL SIGNS: Yes no meningeal signs MOTOR EXAM: 5/5 motor strength present throughout Skin: COMMON NORMALS: no rashes or lesions noted GENERAL SKIN EXAM: no rashes or lesions noted Course 2 Vital Signs: Vital signs: Vital Signs Temperature 99.8 F H 02/16/24 13:59 Pulse Rate 85 02/16/24 15:30 Respiratory Rate 19 H 02/16/24 15:01 Blood Pressure 126/67 02/16/24 15:30 Pulse Oximetry 92 02/16/24 15:30 Oxygen Delivery Me thod Room Air 02/16/24 15:30 MDM - Chest Pain Medical Decision Making Patient's chest pain has improved while here and has not returned. Her vital signs are stable. Extensive cardiac workup including CBC, CMP, D-dimer, CXR, baseline troponin and 2-hour troponin as well as baseline and 2-hour EKGs obtained. Patient's troponins are unremarkable. Her EKGs are nonischemic. Mild elevation of her D-dimer is 0.89 the CTA imaging obtained. No acute findings. Some incidentalomas regarding her thyroid and adrenal gland which she was made aware of and will follow-up with primary care. Patient does have risk factors for cardiac disease. Will set her up with a Lexiscan sestamibi stress test will have her follow-up with cardiology. Return ED precautions given. Medical Records I reviewed the patient's medical records. Lab Data I reviewed the patient's lab results. 02/16/24 14:32 02/16/24 14:32 Radiology Impressions Chest X-Ray 02/16/24 13:53 IMPRESSION: No acute findings. Chest CTA 02/16/24 15:40 IMPRESSION: 1. No evidence for pulmonary arterial embolism. 2. Enlarged nodular thyroid gland. Largest nodule is in the left lobe measuring 2.0 cm which appears to be larger than on CT from 11/01/2022. Consider nonurgent thyroid ultrasound. 3. 1.7 cm left adrenal gland nodule. In a patient with no cancer history, consider 12 month follow-up adrenal CT. (Reference: Leroy) REFERENCES: Leroy MOURA, et al. Management of Incidental Adrenal Masses: A White Paper of the ACR Incidental Findings Committee. J Am Berta Radiol. 2017;14(8):1205-5740. Laboratory Results WBC 9.99 10^3/uL (3.29-11.43) 02/16/24 14:32 RBC 4.37 10^6/uL (3.85-5.65) 02/16/24 14:32 Hgb 14.10 g/dL (11.27-16.99) 02/16/24 14:32 Hct 41.9 % (36-47) 02/16/24 14:32 MCV 95.9 fl (85-98) 02/16/24 14:32 MCH 32.3 pg (27-33) 02/16/24 14:32 MCHC 33.7 g/dL (30-55) 02/16/24 14:32 RDW 12.8 % (12.1-15.1) 02/16/24 14:32 Plt Count 178 10^3/cmm (157-399) 02/16/24 14:32 MPV 10.5 fL (7.4-10.4) H 02/16/24 14:32 Neut % (Auto) 55.8 % 02/16/24 14:32 Lymph % (Auto) 33.8 % 02/16/24 14:32 Clinch % (Auto) 7.7 % 02/16/24 14:32 Eos % (Auto) 1.8 % 02/16/24 14:32 Baso % (Auto) 0.5 % 02/16/24 14:32 Neut # (Auto) 5.57 10^3/uL (1.8-7.7) 02/16/24 14:32 Lymph # (Auto) 3.4 10^3/uL (0.8-4.8) 02/16/24 14:32 Clinch # (Auto) 0.8 10^3/uL (0.2-0.9) 02/16/24 14:32 Eos # (Auto) 0.2 10^3/uL (0.0-0.8) 02/16/24 14:32 Baso # (Auto) 0.1 10^3/uL (0.0-0.1) 02/16/24 14:32 Nucleated RBC % (auto) 0 % 02/16/24 14:32 Nucleated RBCs # 0.0 /100WBC 02/16/24 14:32 D-Dimer 0.87 ug/mLFEU (0-0.59) H 02/16/24 14:32 Sodium 138 mmol/L (136-145) 02/16/24 14:32 Potassium 4.7 mmol/L (3.5-5.1) 02/16/24 14:32 Chloride 101 mmol/L (98-107) 02/16/24 14:32 Carbon Dioxide 22 mmol/L (22-29) 02/16/24 14:32 Anion Gap 19.7 (5-19) H 02/16/24 14:32 BUN 19 mg/dL (6-20) 02/16/24 14:32 Creatinine 0.8 mg/dL (0.5-0.9) 02/16/24 14:32 GFR Calculation 73.9 mL/min (90-130) L 02/16/24 14:32 Glucose 168 mg/dL (65-115) H 02/16/24 14:32 POC Glucose 185 mg/dL (70-110) H 02/16/24 14:47 Calculated Osmolality 292 mOsm/kg (285-295) 02/16/24 14:32 Calcium 9.1 mg/dL (8.5-10.5) 02/16/24 14:32 Total Bilirubin 0.2 mg/dL (0.15-1.2) 02/16/24 14:32 AST 19 U/L (0-32) 02/16/24 14:32 ALT 19 U/L (0-33) 02/16/24 14:32 Alkaline Phosphatase 141 U/L (35-105) H 02/16/24 14:32 Troponin T Baseline < 6 ng/L (0-10) 02/16/24 14:32 Troponin T 120 Minute 6.00 ng/L (0-10) 02/16/24 16:27 Delta Troponin T 0.32453 ABS# (0-10) 02/16/24 16:27 NT-Pro-B Natriuret Pep 97 pg/mL (0-125) 02/16/24 14:30 Total Protein 7.1 g/dL (6.6-8.7) 02/16/24 14:32 Albumin 4.3 g/dL (3.5-5.2) 02/16/24 14:32 Globulin 2.8 g/dL (1.3-4.6) 02/16/24 14:32 Lipase 20 U/L (13-60) 02/16/24 14:32 TSH 0.02 uIU/mL (0.27-4.20) L 02/16/24 14:32 SARS-CoV-2 Ag (Rapid) negative (Negative) 02/16/24 14:57 All radiology interpretation(s) finalized by discharge Discharge Plan Discharge Patient Disposition: Home Clinical Impression: Chest pain Qualifiers: Chest pain type: unspecified Qualified Code(s): R07.9 - Chest pain, unspecified Condition: Stable Prescriptions: No Action cyclobenzaprine 10 mg tablet 10 mg PO BID Qty: 30 2RF dulaglutide 1.5 mg/0.5 mL pen injector 1.5 mg SUBCUT .ONCE WEEKLY Qty: 2 5RF montelukast 10 mg tablet See Rx Instructions .ROUTE .COMPLEX Qty: 30 5RF Dose Instruction: TAKE ONE TABLET BY MOUTH EVERY DAY Rx Instructions: TAKE ONE TABLET BY MOUTH EVERY DAY pantoprazole 40 mg tablet,delayed release (DR/EC) 40 mg PO BID Qty: 60 1RF sucralfate [Carafate] 1 gram tablet 1 g PO BID Qty: 60 1RF aspirin 81 mg tablet,delayed release (DR/EC) 81 mg PO DAILY Qty: 30 0RF Rx Instructions: MUST HAVE APPOINTMENT FOR FUTURE REFILLS (DME) blood-glucose meter Kit See Rx Instructions .Route Qty: 1 0RF Rx Instructions: As directed (DME) OneTouch Ultra Test Strip See Rx Instructions .ROUTE .COMPLEX Qty: 100 0RF Dose Instruction: USE DIRECTED Rx Instructions: USE DIRECTED atorvastatin 80 mg tablet See Rx Instructions .ROUTE .COMPLEX Qty: 30 5RF Dose Instruction: TAKE 1 TABLET BY MOUTH EVERY DAY Rx Instructions: TAKE 1 TABLET BY MOUTH EVERY DAY insulin aspart U-100 100 unit/mL (3 mL) insulin pen See Rx Instructions .ROUTE .COMPLEX Qty: 15 11RF Dose Instruction: inject PER sliding scale with meals. 90-150: no CHANGE, 151-200: TWO units, 201-250:4 units, 251-300: SIX units, 301-350: EIGHT units, 351-400:10 units Rx Instructions: PER sliding scale with meals. 90-150: no CHANGE, 151-200:2 units, 201-250:4 units, 251-300:6 units, 301-350: 8 units, 351-400:10 units oxybutynin chloride 5 mg tablet See Rx Instructions .ROUTE .COMPLEX Qty: 90 2RF Dose Instruction: TAKE 1 TABLET BY MOUTH THREE TIMES DAILY Rx Instructions: TAKE 1 TABLET BY MOUTH THREE TIMES DAILY pregabalin 150 mg capsule 150 mg PO BID Qty: 60 5RF levothyroxine 25 mcg tablet See Rx Instructions .ROUTE .COMPLEX Qty: 40 5RF Dose Instruction: TAKE ONE TABLET BY MOUTH DAILY Rx Instructions: Take one tablet by mouth on M,T,,,Fri and two tablets by mouth on Fri,Fri. amoxicillin-pot clavulanate 875-125 mg tablet 1 tab PO BID Qty: 14 0RF metoprolol tartrate 25 mg tablet See Rx Instructions .ROUTE .COMPLEX Qty: 60 5RF Dose Instruction: TAKE 1 TABLET BY MOUTH TWICE DAILY Rx Instructions: TAKE 1 TABLET BY MOUTH TWICE DAILY Discharge Orders: Discharge ED (Routine); Ordered 02/16/24 Ordered By: Addis Barlow Referrals: Von Wu DO [Primary Care Provider] - Patient Instructions: Chest Pain (DC) Activity Restrictions/Additional Instructions: Has been discussed case management should reach out to you to help set you up with your follow-up cardiac stress test and cardiology follow-up. You may also follow-up with your primary care provider in the meantime. As we discussed you need to return to the emergency department for worsening chest pain, shortness of breath, difficulty breathing, lightheadedness/dizziness/passing out episodes, or any other concerns you may have. I hope you begin to feel better soon. Coding Level of Care Code ED Electrical Development Engineer for Benjamín Ferguson
[2024-02-16] MEDS: nitroglycerin 0.4 mg sublingual Tablet SUBLINGUAL (14:26)
[2024-02-16 14:52] LABS: Basophils # 0.1 10^3/uL (0.0-0.1); Basophils % 0.5 %; Eosinophils # 0.2 10^3/uL (0.0-0.8); Eosinophils % 1.8 %; Hematocrit 41.9 % (36-47); Lymphocytes # 3.4 10^3/uL (0.8-4.8); Lymphocytes % 33.8 %; Mean Corpuscular HGB Conc 33.7 g/dL (30-55); Mean Corpuscular Hemoglobin 32.3 pg (27-33); Mean Corpuscular Volume 95.9 fl (85-98); Mean Platelet Volume 10.5 fL (7.4-10.4); Monocytes # 0.8 10^3/uL (0.2-0.9); Monocytes % 7.7 %; Neutrophils # 5.57 10^3/uL (1.8-7.7); Neutrophils % 55.8 %; Nucleated Red Blood Cells % 0 %; Platelet Count 178 10^3/cmm (157-399); Red Blood Count 4.37 10^6/uL (3.85-5.65); Red Cell Distribution Width 12.8 % (12.1-15.1); White Blood Count 9.99 10^3/uL (3.29-11.43)
[2024-02-16 14:56] LABS: Glucose Point of Care 185 mg/dL (70-110)
[2024-02-16 15:13] LABS: Troponin(5th) Baseline < 6 ng/L (0-10)
[2024-02-16 15:19] LABS: Alanine Aminotransferase 19 U/L (0-33); Albumin Level 4.3 g/dL (3.5-5.2); Alkaline Phosphatase 141 U/L (35-105); Anion Gap 19.7 (5-19); Aspartate Amino Transferase 19 U/L (0-32); Blood Urea Nitrogen 19 mg/dL (6-20); Calcium 9.1 mg/dL (8.5-10.5); Carbon Dioxide 22 mmol/L (22-29); Chloride 101 mmol/L (98-107); Creatinine Clr Calc Pharmacy 84.1598; Globulin 2.8 g/dL (1.3-4.6); Glomerular Filtration Rate 73.9 mL/min (90-130); Glucose 168 mg/dL (65-115); Lipase 20 U/L (13-60); Osmolality Calculated 292 mOsm/kg (285-295); Potassium 4.7 mmol/L (3.5-5.1); Sodium 138 mmol/L (136-145); Thyroid Stimulating Hormone 0.02 uIU/mL (0.27-4.20); Total Bilirubin 0.2 mg/dL (0.15-1.2); Total Protein 7.1 g/dL (6.6-8.7)
[2024-02-16 15:26] LABS: SARS Covid-2 Antigen negative (Negative)
--- NOTE | 2024-02-16 15:37 | ECG_ITS ---
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 Measurements Intervals [place] Rate: 83 P: 54 [place]: 166 QRS: 75 QRSD: 78 T: 62 QT: 350 QTc: 413 Interpretive Statements SINUS RHYTHM LOW QRS VOLTAGE IN PRECORDIAL LEADS [QRS DEFLECTION < 1.0 mV IN CHEST LEADS] Compared to ECG 02/16/2024 13:51:58 No significant changes Electronically Signed On 02-17-2024 7:51:29 CDT by Vikram Landis M.D. [id number]
[2024-02-16 15:38] LABS: D Dimer 0.87 ug/mLFEU (0-0.59)
--- NOTE | 2024-02-16 15:40 | CTR_ITS ---
PROCEDURE INFORMATION: Exam: CTA Chest With Contrast Exam date and time: 02/16/2024 4:10 PM Age: 58 years old Clinical indication: Angina; Additional info: L chest pain; Elevated ddimer TECHNIQUE: Imaging protocol: Computed tomographic angiography of the chest with contrast. Exam focused on the arteries. 3D rendering (Not supervised by radiologist): MIP and/or 3D reconstructed images were created by the technologist. Radiation optimization: All CT scans at this facility use at least one of these dose optimization techniques: automated exposure control; mA and/or kV adjustment per patient size (includes targeted exams where dose is matched to clinical indication); or iterative reconstruction. Contrast material: OMNI 350; Contrast volume: 59 ml; Contrast route: INTRAVENOUS (IV); COMPARISON: CR XR chest 1V portable [id number] 02/16/2024 2:00 PM RADIATION DOSE METRICS: Total DLP (mGy-cm): 337 FINDINGS: Pulmonary arteries: Normal. No pulmonary emboli. Aorta: Unremarkable. No aortic aneurysm. No aortic dissection. Thyroid: Enlarged nodular thyroid gland. Largest nodule is in the left lobe measuring 2.0 cm which appears to be larger than on CT from 11/01/2022. Lungs: Unremarkable. No consolidation. No masses. Pleural spaces: Unremarkable. No pneumothorax. No pleural effusion. Heart: Unremarkable. No cardiomegaly. No pericardial effusion. Minor coronary artery calcifications. Lymph nodes: Calcified left hilar node. Gallbladder and biliary ducts: Previous cholecystectomy. Adrenal glands: 1.7 cm left adrenal gland nodule. Bones/joints: Unremarkable. No acute fracture. Soft tissues: Unremarkable. CT/CT angio chest PE protcl [id number] IMPRESSION: 1. No evidence for pulmonary arterial embolism. 2. Enlarged nodular thyroid gland. Largest nodule is in the left lobe measuring 2.0 cm which appears to be larger than on CT from 11/01/2022. Consider nonurgent thyroid ultrasound. 3. 1.7 cm left adrenal gland nodule. In a patient with no cancer history, consider 12 month follow-up adrenal CT. (Reference: Leroy) REFERENCES: Leroy MOURA et al. Management of Incidental Adrenal Masses: A White Paper of the ACR Incidental Findings Committee. J Am Berta Radiol. 2017;14(8):8077-2004.
[2024-02-16] MEDS: iohexol 350 mg/mL 500 mL Btl (per mL) IV (16:23)
[2024-02-16 17:08] LABS: NT Pro B Type Natriuretic Pept 97 pg/mL (0-125)
[2024-02-16 17:16] LABS: Troponin 5 2HR Delta 0.00001 ABS# (0-10)
--- NOTE | 2024-02-18 08:55 | DCPLANNER ---
sent out patient request to centralized scheduling
== END 2024-02-16 17:50 | disposition home or self-care (01) ==
PROVIDERS: Emergency Medicine; Emergency Provider Physician Assistant; PCP Family Medicine
DX: R07.9 Chest pain, unspecified (principal); R79.1 Abnormal coagulation profile; F17.210 Nicotine dependence, cigarettes, uncomplicated
CPT/HCPCS: 36416; 71045; 71275; 80053; 82962; 83690; 83880; 84443; 84484; 85025; 85378; 87426; 93005; 99285; Q9967

== ENCOUNTER 2024-04-07 10:13 | Outpatient (CLI) | payer MEDICAID, SELFPAY ==
--- NOTE | 2024-04-07 | ECG_ITS ---
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 Interpretive Statements Lexiscan/sestamibi/sestamibi stress test PROCEDURE: At the baseline, the EKG revealed normal sinus rhythm with a normal ST Ts. The baseline heart was 79 bpm with a blood pressue of 119/66 mm of Hg Lexiscan was infused over a period of 20 seconds. A total of 0.4 milligrams of Lexiscan was infused. The stress phase was continued for a total of 5 minutes. Heart rate at the end of the stress phase was 95 bpm with a blood pressure 124/57 mm of Hg. The EKG at the peak infusion revealed no significant changes. Sestamibi was injected 20 seconds after the Lexiscan infusion. Heart rate at the end of the recovery phase was 94 bpm with a blood pressure of 116/65 mm of Hg. CONCLUSION: 1. No significant EKG changes with the LexiScan infusion 2. No LexiScan induced chest pain or cardiac arrhythmia 3. Normal blood pressure and heart rate response 4. Sestamibi/sestamibi perfusion scan pending; see separate report. Electronically Signed On 04-11-2024 20:58:13 CDT by Jennifer Maguire M.D. [id number]
[2024-04-07 10:17] VITALS: BMI 26.9
--- NOTE | 2024-04-07 10:17 | NMCV_ITS ---
NM rusty perf SPECT r/s* [id number] Leatha Livingston Age: 58 Gender: F : 1965 Exam Date: 04/07/2024 11:32 Ordering Phys: Addis Barlow Technologist: TAMARA Teixeira Exam Location: [facility] Indications: CP STRESS TEST Please see separate stress test report in [facility] for full findings IMAGE PROTOCOL Rest/Stress 1 Lexiscan Day Radiopharmaceutical Dose (mCi) Administration Site Administered by Rest: Tc-99m 10.8 IV Vashti Jenn, AIRLINE PILOT FLIGHT INSTRUCTOR Sestamibi Stress:Tc-99m 33.0 IV Vashti Jenn, AIRLINE PILOT FLIGHT INSTRUCTOR Sestamibi Rest: 07-Apr-2024 60 Discovery 630 Stress: 07-Apr-2024 30 Discovery 630 0.4mg Lexiscan. Images obtained in supine and prone position. SPECT RESULTS Technical Quality: Good Raw Data Analysis: Adequate Image Corrections: No attenuation or motion correction applied Summed Stress Score: 0 Summed Rest Score: 0 Summed Difference Score: 0 PERFUSION FINDINGS SPECT images demonstrate homogeneous tracer distribution throughout the myocardium. FUNCTIONAL RESULTS (calculated via Gated SPECT) Stress Image LV EF (%): 78 Stress EDV (mL):68 TID: 0.97 Stress ESV (mL):15 FUNCTIONAL FINDINGS: There is normal left ventricular systolic function. IMPRESSIONS 1. Normal myocardial perfusion imaging with no evidence of ischemia 2. LV systolic function is normal Vikarm Landis MD (Electronically Signed) Final Date: 08 April 2024 11:49 S
[2024-04-07] MEDS: regadenoson 0.4 Mg/5 ml Syringe IVP (12:11)
[2024-04-07 12:24] VITALS: BP 116/65; PULSE 94
== END 2024-04-07 10:14 | disposition home or self-care (01) ==
LOC: CDL 10:14
PROVIDERS: PCP Family Medicine; Visit Provider Family Medicine
DX: R07.9 Chest pain, unspecified (principal); R06.02 Shortness of breath
CPT/HCPCS: 36415; 78452; 93017; 96374; A9500; J2785

== ENCOUNTER → 2024-04-09 10:02 | Outpatient (BNVA) | payer MEDICAID, SELFPAY | PROVIDERS: PCP Family Medicine; Visit Provider Internal Medicine | DX: E05.00 Thyrotoxicosis with diffuse goiter without thyrotoxic crisis or storm (principal); E11.65 Type 2 diabetes mellitus with hyperglycemia; E06.3 Autoimmune thyroiditis | CPT/HCPCS: 36415; 80053; 82088; 84244; 84439; 84443; 84480; 99214 ==

== ENCOUNTER 2024-04-12 09:03 | Outpatient (CLI) | payer MEDICAID, SELFPAY ==
[2024-04-12 10:02] LABS: Urine Creatinine 78 mg/dL (28-217)
[2024-04-12 10:30] LABS: Total Volume Urine 1200 ml
== END 2024-04-12 09:04 | disposition home or self-care (01) ==
PROVIDERS: PCP Family Medicine; Visit Provider Internal Medicine
DX: E05.00 Thyrotoxicosis with diffuse goiter without thyrotoxic crisis or storm (principal); E11.65 Type 2 diabetes mellitus with hyperglycemia; E06.3 Autoimmune thyroiditis
CPT/HCPCS: 82384; 82530; 82570

== ENCOUNTER 2024-04-26 06:40 | Outpatient (CLI) | payer MEDICAID, SELFPAY ==
--- NOTE | 2024-04-26 06:45 | US_ITS ---
WS: [id number] THYROID ULTRASOUND HISTORY: E04.1 - Nontoxic single thyroid nodule COMPARISON: 05/01/2022 Right lobe: 3.5 cm x 2.4 cm x 5.9 cm (w x ap x l). Volume: 23.2 cm3. Markedly enlarged heterogeneous thyroid with cystic components and slight increased vascularity. Glan d is measuring slightly smaller in size than on the prior study. The entire gland is enlarged with a few scattered cystic areas. Mixed solid and cystic nodule in the inferior pole measures 1.5 x 1.2 x 1 .6 cm. Left lobe: 3.3 cm x 1.9 cm x 6.0 cm (w x ap x l). Volume: 18.4 cm3. Moderately enlarged thyroid with cystic and solid components. Hypoechoic well-circumscribed nodule in the inferior pole measures 1.2 x 0.8 x 1.1 cm which has not changed. Isthmus: 0.4 cm. US/US thyroid [id number] IMPRESSION: 1. Enlarged heterogeneous thyroid most consistent with thyroiditis. There are a few small scattered nodules within each thyroid which are not changing in siz e since 2021. 2. TI-RADS 3. TI-RADS 2: No nodule suspicious for biopsy recommendation.
== END 2024-04-26 06:41 | disposition home or self-care (01) ==
LOC: RAD 06:40
PROVIDERS: PCP Family Medicine; Visit Provider Internal Medicine
DX: E04.2 Nontoxic multinodular goiter (principal)
CPT/HCPCS: 76536

== ENCOUNTER → 2024-06-14 12:10 | Outpatient (BNVA) | payer MEDICAID, SELFPAY | PROVIDERS: PCP Family Medicine; Visit Provider Family Medicine | DX: E11.65 Type 2 diabetes mellitus with hyperglycemia (principal); I10 Essential (primary) hypertension | CPT/HCPCS: 80061; 82043; 83036; 83721 ==

== ENCOUNTER 2024-06-15 11:03 | Outpatient (CLI) | payer MEDICAID, SELFPAY ==
[2024-06-15 12:09] LABS: Free T4 Free Thyroxine 0.97 ng/dL (0.82-1.77); Thyroid Stimulating Hormone 0.01 uIU/mL (0.27-4.20)
[2024-06-16 07:45] LABS: T3 Total 112 ng/dL (76-181)
== END 2024-06-15 11:04 | disposition home or self-care (01) ==
PROVIDERS: PCP Family Medicine; Visit Provider Internal Medicine
DX: E06.3 Autoimmune thyroiditis (principal); E05.00 Thyrotoxicosis with diffuse goiter without thyrotoxic crisis or storm
CPT/HCPCS: 36415; 84439; 84443; 84480

== ENCOUNTER → 2024-06-21 09:45 | Outpatient (BNVA) | payer MEDICAID, SELFPAY | PROVIDERS: PCP Family Medicine; Visit Provider Internal Medicine | DX: E06.3 Autoimmune thyroiditis (principal); E05.00 Thyrotoxicosis with diffuse goiter without thyrotoxic crisis or storm; E04.1 Nontoxic single thyroid nodule; E04.9 Nontoxic goiter, unspecified; E11.65 Type 2 diabetes mellitus with hyperglycemia; H66.90 Otitis media, unspecified, unspecified ear; Z79.4 Long term (current) use of insulin; Z79.890 Hormone replacement therapy | CPT/HCPCS: 99214 ==

== ENCOUNTER 2024-06-28 09:40 | Outpatient (CLI) | payer MEDICAID, SELFPAY ==
[2024-06-28 11:02] LABS: Thyroid Stimulating Hormone 0.01 uIU/mL (0.27-4.20)
== END 2024-06-28 09:41 | disposition home or self-care (01) ==
LOC: LAB 09:41
PROVIDERS: PCP Family Medicine; Visit Provider Internal Medicine
DX: E06.3 Autoimmune thyroiditis (principal); E05.00 Thyrotoxicosis with diffuse goiter without thyrotoxic crisis or storm; E04.1 Nontoxic single thyroid nodule; E04.9 Nontoxic goiter, unspecified
CPT/HCPCS: 36415; 84443

== ENCOUNTER 2024-09-06 14:21 | Outpatient (CLI) | payer MEDICAID, SELFPAY ==
[2024-09-06 15:01] LABS: Estmated Average Glucose 163; Hemoglobin A1C 7.3 % (4.0-6.0)
[2024-09-06 15:10] LABS: Creatinine Urine, Random 97 mg/dL (28-217); Microalbum Creatinine Ratio Ur 10 mg/dL (0-20); Microalbumin Random Urine 1 ug/dL (0-20)
[2024-09-06 15:19] LABS: Alanine Aminotransferase 16 U/L (0-33); Albumin Level 4.4 g/dL (3.5-5.2); Alkaline Phosphatase 96 U/L (35-105); Anion Gap 15.7 (5-19); Aspartate Amino Transferase 19 U/L (0-32); Blood Urea Nitrogen 17 mg/dL (6-20); Calcium 7.8 mg/dL (8.5-10.5); Carbon Dioxide 26 mmol/L (22-29); Chloride 103 mmol/L (98-107); Chol HDL Ratio 8.78 mg/dL (0.0-4.40); Cholesterol 316 mg/dL (0-200); Globulin 2.7 g/dL (1.3-4.6); Glomerular Filtration Rate 73.7 mL/min (90-130); Glucose 139 mg/dL (65-115); HDL Cholesterol 36 mg/dL (60-100); Osmolality Calculated 296 mOsm/kg (285-295); Potassium 3.7 mmol/L (3.5-5.1); Sodium 141 mmol/L (136-145); Thyroid Stimulating Hormone 1.31 uIU/mL (0.27-4.20); Total Bilirubin 0.2 mg/dL (0.15-1.2); Total Protein 7.1 g/dL (6.6-8.7); Triglycerides 521 mg/dL (0-150)
[2024-09-06 18:47] LABS: LDL Cholesterol Direct 189 mg/dL (0-100)
[2024-09-06 21:03] LABS: Free T4 Free Thyroxine 1.26 ng/dL (0.82-1.77)
== END 2024-09-06 14:22 | disposition home or self-care (01) ==
LOC: LAB 14:22
PROVIDERS: PCP Family Medicine; Visit Provider Internal Medicine
DX: E06.3 Autoimmune thyroiditis (principal); E11.65 Type 2 diabetes mellitus with hyperglycemia
CPT/HCPCS: 36415; 80053; 80061; 82044; 83036; 83721; 84439; 84443

== ENCOUNTER → 2024-09-10 09:54 | Outpatient (BNVA) | payer MEDICAID, SELFPAY | PROVIDERS: PCP Family Medicine; Visit Provider Internal Medicine | DX: E04.1 Nontoxic single thyroid nodule (principal); E05.00 Thyrotoxicosis with diffuse goiter without thyrotoxic crisis or storm; E06.3 Autoimmune thyroiditis; E04.9 Nontoxic goiter, unspecified; E11.65 Type 2 diabetes mellitus with hyperglycemia; H66.90 Otitis media, unspecified, unspecified ear | CPT/HCPCS: 99214 ==

== ENCOUNTER 2024-09-17 09:15 | Outpatient (CLI) | payer MEDICAID, SELFPAY ==
[2024-09-17 09:47] LABS: Alanine Aminotransferase 15 U/L (0-33); Albumin Level 4.3 g/dL (3.5-5.2); Alkaline Phosphatase 96 U/L (35-105); Anion Gap 13.5 (5-19); Aspartate Amino Transferase 18 U/L (0-32); Blood Urea Nitrogen 17 mg/dL (6-20); Calcium 8.3 mg/dL (8.5-10.5); Carbon Dioxide 29 mmol/L (22-29); Chloride 103 mmol/L (98-107); Globulin 2.8 g/dL (1.3-4.6); Glomerular Filtration Rate 56.9 mL/min (90-130); Glucose 90 mg/dL (65-115); Osmolality Calculated 293 mOsm/kg (285-295); Potassium 4.5 mmol/L (3.5-5.1); Sodium 141 mmol/L (136-145); Total Bilirubin 0.2 mg/dL (0.15-1.2); Total Protein 7.1 g/dL (6.6-8.7)
[2024-09-17 09:48] LABS: Calcium 8.1 mg/dL (8.5-10.5)
[2024-09-17 09:52] LABS: Parathyroid Hormone 16.6 pg/mL (15-65)
== END 2024-09-17 09:16 | disposition home or self-care (01) ==
LOC: LAB 09:16
PROVIDERS: PCP Family Medicine; Visit Provider Internal Medicine
DX: E04.1 Nontoxic single thyroid nodule (principal); E05.00 Thyrotoxicosis with diffuse goiter without thyrotoxic crisis or storm; E06.3 Autoimmune thyroiditis; E04.9 Nontoxic goiter, unspecified; E11.65 Type 2 diabetes mellitus with hyperglycemia; H66.90 Otitis media, unspecified, unspecified ear
CPT/HCPCS: 36415; 80053; 82310; 83970

== ENCOUNTER 2024-09-29 13:16 | Outpatient (CLI) | payer MEDICAID, SELFPAY ==
[2024-09-29 15:19] LABS: Blood Urea Nitrogen 20 mg/dL (6-20); Calcium 8.2 mg/dL (8.5-10.5); Carbon Dioxide 24 mmol/L (22-29); Chloride 102 mmol/L (98-107); Glomerular Filtration Rate 56.9 mL/min (90-130); Glucose 194 mg/dL (65-115); Osmolality Calculated 296 mOsm/kg (285-295); Sodium 139 mmol/L (136-145)
== END 2024-09-29 13:17 | disposition home or self-care (01) ==
LOC: LAB 13:18
PROVIDERS: PCP Family Medicine; Visit Provider Internal Medicine
DX: E83.51 Hypocalcemia (principal)
CPT/HCPCS: 36415; 80048

== ENCOUNTER 2024-10-13 10:48 | Outpatient (CLI) | payer MEDICAID, SELFPAY ==
[2024-10-13 11:35] LABS: Anion Gap 12.5 (5-19); Blood Urea Nitrogen 19 mg/dL (6-20); Calcium 8.1 mg/dL (8.5-10.5); Carbon Dioxide 28 mmol/L (22-29); Chloride 103 mmol/L (98-107); Glomerular Filtration Rate 64.3 mL/min (90-130); Glucose 100 mg/dL (65-115); Osmolality Calculated 290 mOsm/kg (285-295); Potassium 4.5 mmol/L (3.5-5.1); Sodium 139 mmol/L (136-145)
== END 2024-10-13 10:49 | disposition home or self-care (01) ==
LOC: LAB 10:48
PROVIDERS: PCP Family Medicine; Visit Provider Internal Medicine
DX: E11.65 Type 2 diabetes mellitus with hyperglycemia (principal); E78.01 Familial hypercholesterolemia
CPT/HCPCS: 36415; 80048

== ENCOUNTER 2024-10-27 08:39 | Outpatient (CLI) | payer MEDICAID, SELFPAY ==
[2024-10-27 09:39] LABS: Alanine Aminotransferase 15 U/L (0-33); Albumin Level 4.5 g/dL (3.5-5.2); Alkaline Phosphatase 74 U/L (35-105); Anion Gap 16.2 (5-19); Aspartate Amino Transferase 16 U/L (0-32); Blood Urea Nitrogen 31 mg/dL (6-20); Carbon Dioxide 27 mmol/L (22-29); Chloride 103 mmol/L (98-107); Chol HDL Ratio 9.24 mg/dL (0.0-4.40); Cholesterol 314 mg/dL (0-200); Glucose 229 mg/dL (65-115); HDL Cholesterol 34 mg/dL (60-100); LDL Cholesterol Calculated 205 mg/dL (50-129); LDL HDL Ratio 6.03 RATIO (0.00-3.22); Osmolality Calculated 308 mOsm/kg (285-295); Potassium 4.2 mmol/L (3.5-5.1); Sodium 142 mmol/L (136-145); Total Bilirubin 0.2 mg/dL (0.15-1.2); Total Protein 7.5 g/dL (6.6-8.7); Triglycerides 375 mg/dL (0-150)
[2024-10-27 09:42] LABS: Calcium 9.1 mg/dL (8.5-10.5)
[2024-10-27 09:47] LABS: Parathyroid Hormone 8.3 pg/mL (15-65)
[2024-10-27 10:06] LABS: Estmated Average Glucose 151; Hemoglobin A1C 6.9 % (4.0-6.0)
[2024-10-27 10:47] LABS: Creatinine Urine, Random 56 mg/dL (28-217); Microalbum Creatinine Ratio Ur 18 mg/dL (0-20); Microalbumin Random Urine 1 ug/dL (0-20)
== END 2024-10-27 08:40 | disposition home or self-care (01) ==
LOC: LAB 08:40
PROVIDERS: PCP Family Medicine; Visit Provider Internal Medicine
DX: E83.51 Hypocalcemia (principal); E89.0 Postprocedural hypothyroidism; E06.3 Autoimmune thyroiditis; E11.65 Type 2 diabetes mellitus with hyperglycemia; E04.9 Nontoxic goiter, unspecified; I10 Essential (primary) hypertension; E11.42 Type 2 diabetes mellitus with diabetic polyneuropathy
CPT/HCPCS: 36415; 80053; 80061; 82044; 82310; 83036; 83970

== ENCOUNTER 2024-11-24 08:10 | Outpatient (CLI) | payer MEDICAID, SELFPAY ==
[2024-11-24 08:52] LABS: Chol HDL Ratio 8.94 mg/dL (0.0-4.40); Cholesterol 286 mg/dL (0-200); HDL Cholesterol 32 mg/dL (60-100); LDL Cholesterol Calculated 187 mg/dL (50-129); LDL HDL Ratio 5.84 RATIO (0.00-3.22); Triglycerides 335 mg/dL (0-150)
== END 2024-11-24 08:11 | disposition home or self-care (01) ==
LOC: LAB 08:11
PROVIDERS: PCP Family Medicine; Visit Provider Internal Medicine
DX: E78.01 Familial hypercholesterolemia (principal); E11.65 Type 2 diabetes mellitus with hyperglycemia; I10 Essential (primary) hypertension
CPT/HCPCS: 36415; 80061

== ENCOUNTER → 2024-12-09 09:10 | Outpatient (BNVA) | payer MEDICAID, SELFPAY | PROVIDERS: PCP Family Medicine; Visit Provider Family Medicine | DX: E89.0 Postprocedural hypothyroidism (principal); E05.00 Thyrotoxicosis with diffuse goiter without thyrotoxic crisis or storm; E06.3 Autoimmune thyroiditis; K21.9 Gastro-esophageal reflux disease without esophagitis; E83.51 Hypocalcemia | CPT/HCPCS: 80048; 84439; 84443; 84481; 85025 ==

== ENCOUNTER → 2025-01-27 11:48 | Outpatient (BNVA) | payer MEDICAID, SELFPAY | PROVIDERS: PCP Family Medicine; Visit Provider Family Medicine | DX: E11.65 Type 2 diabetes mellitus with hyperglycemia (principal); I10 Essential (primary) hypertension; E78.01 Familial hypercholesterolemia; E78.2 Mixed hyperlipidemia; E05.00 Thyrotoxicosis with diffuse goiter without thyrotoxic crisis or storm; E06.3 Autoimmune thyroiditis; E89.0 Postprocedural hypothyroidism; R11.0 Nausea | CPT/HCPCS: 80053; 80061; 82310; 83036; 83690; 83970; 84439; 84481; 85025 ==

== ENCOUNTER 2025-02-14 09:34 | Outpatient (CLI) | payer MEDICAID, SELFPAY ==
--- NOTE | 2025-02-14 09:40 | MM_ITS ---
WS: [id number] BILATERAL SCREENING DIGITAL TOMOSYNTHESIS MAMMOGRAM WITH CAD HISTORY: screening COMPARISON: None available. Bilateral CC and MLO views with tomosynthesis and synthetic mammography submitted. Computer aided detection analyzed. Breast composition: The breasts are almost entirely fatty. No suspicious masses, microcalcifications or architectural distortion. Benign calcifications RIGHT breast. MM/MM scr BI tomosynthesis [id number] IMPRESSION: BI-RADS: 2 - Benign. FOLLOW UP: 1 Year Follow-up
== END 2025-02-14 09:35 | disposition home or self-care (01) ==
LOC: RAD 09:35
PROVIDERS: PCP Family Medicine; Visit Provider Family Medicine
DX: Z12.31 Encounter for screening mammogram for malignant neoplasm of breast (principal); R92.313 Mammographic fatty tissue density, bilateral breasts; R92.1 Mammographic calcification found on diagnostic imaging of breast
CPT/HCPCS: 77063; 77067

== ENCOUNTER 2025-02-18 12:00 | Outpatient (CLI) | payer MEDICAID, SELFPAY ==
--- NOTE | 2025-02-18 12:30 | CT_ITS ---
WS: [id number] LDCT LUNG CANCER SCREENING HISTORY: smoker 42pk yr; screening TECHNIQUE: Axial imaging performed from the apices to 1 cm below the costophrenic angles. Coronal and sagittal reformats are submitted with axial MIP series. All CT scans at [facility] use at least one of these dose optimization techniques: automated exposure control; mA and/or kV adjustment per patient size (includes targeted exams where dose is matched to clinical indication); or iterative reconstruction. DLP: 70.32 mGy.cm DIvol: Mean CTDIvol: 1.50 (mGy) COMPARISON: None available. Diagnostic quality: Satisfactory Lungs: Biapical pleural tagging. No pulmonary nodule or mass. No endobronchial lesions. No pneumonia. Heart: Normal size heart with no pericardial effusion.. Other findings: Mild atherosclerosis aorta. Normal size aorta and pulmonary artery. No adenopathy. Prior cholecystectomy. Stable 12 mm LEFT adrenal nodule. CT/CT lung screening [id number] IMPRESSION: LUNG-RADS: 1-Negative FOLLOW UP: 12 Month: Continue annual screening with LDCT OTHER FINDINGS (S MODIFIER): None.
== END 2025-02-18 12:01 | disposition home or self-care (01) ==
LOC: RAD 12:02
PROVIDERS: PCP Family Medicine; Visit Provider Family Medicine
DX: Z12.2 Encounter for screening for malignant neoplasm of respiratory organs (principal); F17.210 Nicotine dependence, cigarettes, uncomplicated
CPT/HCPCS: 71271

== ENCOUNTER 2025-04-20 06:24 | Emergency (ER) | payer MEDICAID, SELFPAY ==
[2025-04-20 06:25] VITALS: BP 136/76; PULSE 80; RESP 18; TEMP 36.6; O2SAT 96; BMI 27.1
--- NOTE | 2025-04-20 06:27 | XRR_ITS ---
PROCEDURE INFORMATION: Exam: XR Chest Exam date and time: 04/20/2025 6:32 AM Age: 59 years old Clinical indication: Shortness of breath; Additional info: SOB TECHNIQUE: Imaging protocol: Radiologic exam of the chest. Views: 1 view. COMPARISON: CT lung screening [id number] 02/18/2025 12:45 PM FINDINGS: Lungs: Unremarkable. No consolidation. Pleural spaces: Unremarkable. No pleural effusion. No pneumothorax. Heart/Mediastinum: Unremarkable. No cardiomegaly. Bones/joints: Unremarkable. Healed right rib fracture. XR/XR chest 1V portable [id number] IMPRESSION: No acute findings.
[2025-04-20 06:29] VITALS: BP 145/81; PULSE 79; O2SAT 93
--- OUTSIDE RECORDS SUMMARY | 2025-04-20 06:29 | XMS_ITS | Encounter Summary ---
[facility] Address [address] [place] [address] Care Team Providers Care Manager Financial Reporting Name Role Phone Estephania Kraus MD Primary Care Provider [phone] Encounter Details Date Type Department Care Team (Late st Contact Info) Description 04/19/2025 External Device Data [place] ABSTRACTION Provider, Abstract NO ADDRESS ON FILE Social History Tobacco Use Types Packs/Day Years Used Date Smoking Tobacco: Every Day Cigarettes Smokeless Tobacco: Never Alcohol Use Standard Drinks/Week Comments Never 0 (1 standard drink = 0.6 oz pur e alcohol) Feeling Safe Answer Date Recorded Are you in a relationship wi th someone who hurts you emotionally and/or physically? 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
--- OUTSIDE RECORDS SUMMARY | 2025-04-20 06:29 | XMS_ITS | Clinical Summary ---
Author Organization [facility] Address [address] [place]el: Epic [place] [address] Care Team Providers Care Termite Control Service Representative Name Role Phone Estephania Kraus MD Primary Care Provider Allergies Active Allergy Reactions Criticality Noted Date Comments Hydrochlorothiazide Hives,Rash,Shortness of Breath/Wheezing High 03/10/2020 Hydromorphone Nausea and Vomiting,Palpitations Low 03/10/2020 Medications lancets (OneTouch Delica Plus Lancet) 33 gauge TEST BLOOD SUGAR TWICE DAILY DIRECTED 03/02/20 20 Active atorvastatin (LIPITOR) 80 mg tablet TAKE 1 TABLET BY MOUTH ONCE A DAY 02/14/20 20 Active metoprolol succinate (TOPROL XL) 25 mg Extended Release 24 hour tablet Take 50 mg by mouth daily. 03/10/20 20 Active blood sugar diagnostic (OneTouch Verio test strips) Strip TEST BLOOD SUGAR TWICE DAILY DIRECTED 03/02/20 20 Active insulin lispro (HUMALOG PEN SUBCUT) Inject by subcutaneous injection. 03/10/20 20 Active pregabalin (LYRICA) 150 mg Capsule Take 150 mg by mouth every 12 hours. 03/10/20 20 Active oxybutynin chloride (DITROPAN) 5 mg tablet TAKE 1 TABLET BY MOUTH THREE TIMES DAILY 02/14/20 20 Active metoprolol tartrate (LOPRESSOR) 25 mg tablet Take 1 Tablet by mouth 2 times daily. 06/14/20 24 Active pantoprazole (PROTONIX) 40 mg Tablet, Delayed Release (E.C.) Take 1 Tablet by mouth 2 times daily. 07/12/20 24 Active Pentips Pen Needle 31 gauge x /16 Needle use as directed 07/12/20 24 Active fenofibrate nanocrystallized (TRICOR) 145 mg tablet Take 1 Tablet by mouth daily. 07/12/20 24 Active Trulicity 1.5 mg/0.5 mL injection Takes on 07/12/20 Active insulin glargine (LANTUS) 100 unit/mL injection Inject by subcutaneous injection daily with breakfast. Patient report takes 30 units Active fenofibrate nanocrystallized (TRICOR) 145 mg tablet Take 145 mg by mouth late in the day. Active levothyroxine 100 mcg tablet Take 1 Tablet (100 mcg) by mouth daily in the morning. 30 Tablet 3 5 1:31 PM [employer]P SAL[employer] 08/04/19 25 Active oxyCODONE (ROXICODONE) 5 mg tabletIndications:Mu ltinodular goiter Take 1 Tablet (5 mg) by mouth every 4 hours as needed for Pain. Max Daily Amount: 30 mg 20 Tablet 5 1:31 PM [employer] 08/04/19 25 Active naloxone (Narcan) 4 mg/spray [place], Non-Aerosol Push plunger to administer. Call 911. May repeat dose, every 2-3 minutes, if the person does not wake up or breathing is not improved. 2 Each 5 1:31 PM [employer] 08/04/19 25 Active Active Problems No known active problems Encounters Date Type Department Care Team Description 04/19/2025 External Device Data [facility] ABSTRACTION Provider, Abstract 03/29/2025 External Device Data [facility]STRACTION Provider, Abstract 03/15/2025 External Device Data [facility]STRACTION Provider, Abstract 03/08/2025 External Device Data [facility]CTION Provider, Abstract 03/08/2025 External Device Data [facility]STRACTION Provider, Abstract 02/15/2025 External Device Data [facility] ABSTRACTION Provider, Abstract 01/26/2025 External Device Data [facility] ABSTRACTION Provider, Abstract 01/26/2025 External Device Data [facility] ABSTRACTION Provider, Abstract from Last 3 Months Immunizations Immunization Administration Dates Next Due Influenza Seasonal Unspecified Formulation IM Family History Medical History Relation Name Comments Cancer Father Saeid Rene My dad passed a way from lung cancer and 2018 Heart Disease Father Saeid Hendersony My dad had a m assive heart attack around 1992 High Cholesterol Father Saeid Rene Hypertension Father Saeid Rene My mother also had high blood pressure. Diabetes Mother Nidia Rene Mom had diabete s approximately 45 years Hypertension Mother Nidia Rene Stroke Mother Nidia Rene My mother passe d away June 2023 from complications from a massive stroke. Cancer Paternal Grandfather Hussein My gran dpa from cancer Cancer Paternal Grandmother Sherley My gran dmother from colon cancer Thyroid Disease Paternal Grandmother Sherley My G randmother Had thyroid surgery and also had Lucero removed during that surgery. Relation Name Status Comments Father Saeid Rene Alive Mother Nidia Rene Alive Paternal Grandfather Hussein Alive Paternal Grandmother Sherley Alive Social History Tobacco Use Types Packs/Day Years Used Date Smoking Tobacco: Every Day Cigarettes Smokeless Tobacco: Never Tobacco Cessation:Ready to Q uit: No; Counseling Given: Yes Alcohol Use Standard Drinks/Week Comments Never 0 [...] on file Legal Sex Female 1:41 AM [employer] SAL[employer] Gender Identity Female 06/30/2024 11:31 AM [employer] SAL[employer] Sexual Orientation Not on file Last Filed Vital Signs Vital Sign Reading Time Taken Comments Blood Pressure 125/65 09/07/2024 9:50 AM [employer] Pulse 74 08/09/2024 1:00 PM [employer] Temperature 36.2 C (97.2 F) 08/09/2024 10:35 AM [employer] SAL[employer] Respiratory Rate 16 08/09/2024 12:00 PM [employer] SAL[employer] Oxygen Saturation 100% 08/09/2024 1:00 PM [employer] Inhaled Oxygen Concentration - - Weight 83 kg (183 lb) 09/07/2024 9:50 AM [employer] SAL[employer] Height 170.2 cm (5' 7 ) 09/07/2024 9:50 AM [employer] SAL[employer] Body Mass Index 28.66 09/07/2024 9:50 AM EVP SAL[employer] Plan of Treatment Health Maintenance Due Date Last Done Comments Pre-Diabetes and Diabetes Screening 1966 DTAP/TDAP/TD VACCINES (1 - Tdap) 1985 HEPATITIS B VACCINES (1 of 3 - 19+ 3-dose series) 10/1984 HPV/Cotest (21-29) 1987 CERVICAL CANCER SCREENING 1996 HPV/Cotest (30-65) 1996 PAP SMEAR 1996 BREAST CANCER SCREENING 2006 COLORECTAL SCREENING 2011 Colorectal Cancer Screening 2011 FIT-DNA Q 3 years 2011 FIT/FOBT Q 1 year 2011 Flex Sig/CT Colonography Q 5 years 2011 ZOSTER VACCINE (1 of 2) 2016 INFLUENZA VACCINE (#1) 2025 05/27/2024 Medical Devices Implanted Type Area Marble Supervisor Device Identifier Shelf Expiration Date Model / Serial / Lot Clip Ligating Horizon Med Ti [id number] - [facility] - [id number] Implanted:Qty: 1 on 08/04/2024 by Allen Williamson MD at [facility] Clip N/A: Neck TELEFLEX- [employer] [id number] 04/20/2029 [id number] / / [id number] Clip Ligating Horizon Red [id number] - [facility] - [id number] Implanted:Qty: 1 on 08/04/2024 by Allen Williamson MD at [facility] Clip N/A: Neck [employer] [id number] 04/29/2029 [id number] / / [id number] Insurance MEDICAID [place] RX INFOCROSSING Medicaid Care Teams Termite Control Service Representative Relationship Specialty Start Date End Date Estephania Kraus MD [address] [place] [address] PCP - General Family Practice 11/15/24
--- NOTE | 2025-04-20 06:34 | ED_ITS ---
HPI - SOB/Dyspnea General: Chief Complaint: Shortness of Breath/Dyspnea Stated Complaint: bug spray exposure/ sob Time Seen by Provider: 04/20/25 06:27 Source: patient and EMS Mode of arrival: EMS Limitations: no limitations History of Present Illness: HPI Narrative: 59-year-old female who states that she h ad said a bug bomb off just prior to arrival since she had accidentally sprayed in her face and inhaled some but got very short of breath. States this lasted for a few minutes now complete resolved states she feels at her baseline pulse ox here is 90% denies any cough or fever denies eating any rice. Related Data Previous Rx's ?Medication ?Instructions ?Recorded aspirin 81 mg tablet,delayed 81 mg PO DAILY #30 tabs 0 09/19/22 release blood-glucose meter #1 ea 10/03/22 blood sugar diagnostic ([employer]Touch #100 strips 05/01/23 Ultra Test strips) insulin glargine 100 unit/mL (3 30 unit (0.3 mL) SUBCU T QAM #15 mL 07/27/24 mL) subcutaneous pen metoprolol tartrate 25 mg tablet 25 mg PO BID #180 tab s 09/13/24 fenofibrate nanocrystallized 145 145 mg PO DAILY #90 t abs 11/29/24 mg tablet pantoprazole 40 mg tablet,delayed 40 mg PO BID #60 tab s 11/29/24 release atorvastatin 40 mg tablet (Lipitor) 40 mg PO DAILY #90 tabs 12/09/24 cetirizine 10 mg tablet 10 mg PO DAILY PRN allergy 0 12/09/24 symptoms #30 tabs oxybutynin chloride 15 mg 15 mg PO DAILY #30 tabs 12/12 01/05 tablet,extended release 24 hr pregabalin 150 mg capsule 150 mg PO BID #60 caps 12/28 calcitriol 0.25 mcg capsule 0.25 mcg PO BID 1 month #6 0 caps 01/27/25 fluticasone propionate 50 2 spray intranasal DAILY #16 grams 01/27/25 mcg/actuation nasal spray,suspension (Allergy Relief (fluticasone)) levothyroxine 150 mcg tablet 150 mcg PO DAILY #60 tabs 01/28/25 (Synthroid) pen needle, diabetic 32 gauge x #100 ea 02/13/25 (TechLITE Pen Needle) dulaglutide 1.5 mg/0.5 mL 1.5 mg (0.5 mL) SUBCUT .qwk #2 mL 04/08/25 subcutaneous pen injector (Trulicity) insulin lispro 100 unit/mL 4 unit (0.04 mL) SUBCUT TID #15 mL 04/08/25 subcutaneous pen Allergies Allergy/AdvReac Type Severity Reaction Status Date / Time hydrochlorothiazide Allergy ALGY-Rash Verified 01/27/25 10:40 hydromorphone Allergy ALGY-Rash Verified 01/27/25 10:40 Review of Systems Resp: Reports: dyspnea PFSH ED PFSH: Medical History (Updated 04/20/25 @ 06:43 by Shane Dela Cruz MD) GERD without esophagitis Mixed hyperlipidemia Hypocalcemia right after thyroidecomy; Post-surgical hypothyroidism Screening for lung cancer LDCT 02.18.25 neg Nicotine dependence, cigarettes, uncomplicated Allergies Posttraumatic headache Occipital neuralgia of left side Adrienne's thyroiditis has now had thyroidectomy Degeneration of intervertebral disc of cervical region lumbar and cervical Essential hypertension Diabetic peripheral neuropathy associated with type 2 diabetes mellitus Graves disease has now had thyroidectomy Diabetes type 2, uncontrolled didn't tolerate metformin CVA (cerebral vascular accident) L cerebellar on MRI; small vessel disease note Seizure-like activity Surgical History Hx of total thyroidectomy done 2023 [facility]; path benign History of cholecystectomy H/O hysterectomy with unilateral oophorectomy Tubal ligation status Family History Father No problems noted. 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 Female Reproductive History: Spontaneous abortions: No Physical Exam Const: COMMON NORMALS: no acute distress, patient oriented x3 and healthy appearing HENMT: COMMON NORMALS: normocephalic and atraumatic HEAD & SCALP: normocephalic and atraumatic Eye: COMMON NORMALS: conjunctivae normal CONJUNCTIVA: Yes conjunctivae normal Neck/C-Spine: COMMON NORMALS: full ROM and supple Chest: COMMONS NORMALS: normal inspection of the chest Resp: COMMON NORMALS: normal respiratory effort, No retractions, No use of accessory muscles and clear to auscultation bilaterally AUSCULTATION: clear to auscultation bilaterally Cardio: COMMON NORMALS: regular rate, regular rhythm and No murmurs present (Cardio) RATE: regular rate RHYTHM: regular rhythm Extremity: COMMON NORMALS: normal to inspection and full ROM Neuro: COMMON NORMALS: patient oriented x3, moves all extremities and no focal motor deficits Psych: COMMON NORMALS: mental status grossly normal, Normal thought process present and cooperative THOUGHT PROCESS: Normal thought process present Skin: COMMON NORMALS: no rashes or lesions noted and no wounds GENERAL SKIN EXAM: no rashes or lesions noted Course Vital Signs: Vital signs: Vital Signs Temperature 97.9 F 04/20/25 06:25 Pulse Rate 79 04/20/25 06:47 Respiratory Rate 18 04/20/25 06:25 Blood Pressure 145/81 04/20/25 06:47 Pulse Oximetry 98 04/20/25 06:47 Oxygen Delivery Me thod Room Air 04/20/25 06:25 MDM - SOB/Dyspnea Medical Decision Making Patient presents for dyspnea after spraying bug spray. Her symptoms have completely resolved and she is having no shortness of breath here pulse ox is normal chest x-ray is normal she has no signs of pneumonia or pulmonary emboli. Likely just an acute reaction to the bug spray with no signs of any lasting effects at this time no signs of toxicity she did not get any in her eye she is stable for discharge follow-up with PCP return if worsening. She understands agrees to plan. Medical Records I reviewed the patient's medical records. XR interpretation done by ED provider, pending radiology final review ED provider radiology interpretation(s): cxr: no acute abnormality Discharge Plan Discharge Patient Disposition: Home Clinical Impression: Shortness of breath Condition: Stable Prescriptions: No Action Adacel(Tdap Adolesn/Adult)(PF) 2 Lf-(2.5-5-3-5 mcg)-5Lf/0.5 mL syringe 0.5 ml IM ONCE Qty: 0.5 0RF calcitriol 0.25 mcg capsule 0.25 mcg PO BID 30 Days Qty: 60 3RF fluticasone propionate [Allergy Relief (fluticasone)] 50 mcg/actuation spray,suspension 2 spray intranasal DAILY Qty: 16 8RF Rx Instructions: administer into each nostril metoprolol tartrate 25 mg tablet 25 mg PO BID Qty: 180 3RF atorvastatin [Lipitor] 40 mg tablet 40 mg PO DAILY Qty: 90 3RF cetirizine 10 mg tablet 10 mg PO DAILY PRN (Reason: allergy symptoms) Qty: 30 0RF aspirin 81 mg tablet,delayed release (DR/EC) 81 mg PO DAILY Qty: 30 0RF Rx Instructions: MUST HAVE APPOINTMENT FOR FUTURE REFILLS (DME) blood-glucose meter Kit See Rx Instructions .Route Qty: 1 0RF Rx Instructions: As directed (DME) OneTouch Ultra Test Strip See Rx Instructions .ROUTE .COMPLEX Qty: 100 0RF Dose Instruction: USE DIRECTED Rx Instructions: USE DIRECTED insulin glargine 100 unit/mL (3 mL) insulin pen 30 unit SUBCUT QAM Qty: 15 5RF pantoprazole 40 mg tablet,delayed release (DR/EC) 40 mg PO BID Qty: 60 5RF fenofibrate nanocrystallized 145 mg tablet 145 mg PO DAILY Qty: 90 1RF oxybutynin chloride 15 mg tablet extended release 24hr 15 mg PO DAILY Qty: 30 5RF pregabalin 150 mg capsule 150 mg PO BID Qty: 60 5RF levothyroxine [Synthroid] 150 mcg tablet 150 mcg PO DAILY Qty: 60 1RF (DME) pen needle, diabetic [TechLITE Pen Needle] 32 gauge x 5/32 needle See Rx Instructions .ROUTE .COMPLEX Qty: 100 3RF Dose Instruction: USE FOUR TIMES DAILY with lantus and lispro Rx Instructions: USE FOUR TIMES DAILY with lantus and lispro Trulicity 1.5 mg/0.5 mL pen injector 1.5 mg SUBCUT .qwk Qty: 2 5RF insulin lispro 100 unit/mL insulin pen 4 unit SUBCUT TID Qty: 15 6RF Discharge Orders: Discharge ED (Routine); Ordered 04/20/25 Ordered By: Shane Dela Cruz Referrals: Estephania Kraus MD [Primary Care Provider, Family Practice] - 4-7 days Discharge Diet: Advance as tolerated Discharge Activity: Resume usual activity Patient Instructions: Dyspnea (ED) Print Language: Portuguese Coding Level of Care Code ED Senior Linux Systems Engineer for Benjamín Ferguson
[2025-04-20 06:47] VITALS: BP 145/81; PULSE 79; O2SAT 98
== END 2025-04-20 06:47 | disposition home or self-care (01) ==
PROVIDERS: Emergency Provider Emergency Medicine; PCP Family Medicine
DX: R06.02 Shortness of breath (principal); Z79.82 Long term (current) use of aspirin; Z79.4 Long term (current) use of insulin; Z79.85 Long-term (current) use of injectable non-insulin antidiabetic drugs; F17.210 Nicotine dependence, cigarettes, uncomplicated; Z86.73 Personal history of transient ischemic attack (TIA), and cerebral infarction without residual deficits; E11.42 Type 2 diabetes mellitus with diabetic polyneuropathy; I10 Essential (primary) hypertension; E78.2 Mixed hyperlipidemia
CPT/HCPCS: 71045; 99283

== ENCOUNTER → 2025-04-21 11:59 | Outpatient (BNVA) | payer MEDICAID, SELFPAY | PROVIDERS: PCP Family Medicine; Visit Provider Family Medicine | DX: E11.65 Type 2 diabetes mellitus with hyperglycemia (principal) | CPT/HCPCS: 80048; 83036 ==